=== PATIENT | female | born 1960 | race Caucasian/White ===

== ENCOUNTER → 2017-03-28 | Outpatient (CLI) | payer BC, MEDICARE ==
[~2017-03-28] MED LIST: AMLO10TA2 PO; AMLO10TA4 PO; BENAZEPRIL/HCTZ; BNZ10T GT; BNZ20T PO; CEPH250T PO; CHOL20002 PO; CLIN300C11 PO; DIPH25CA79 PO; FURO20TA4 PO; HYDR-690 PO; LEVO500T69 PO; OMEP40CA36 PO; ONDA8TAB6 PO; OXYC10TA8 PO; OXYC30TA76 PO; OXYC40TA57 PO; POLY17PO6 PO; RT-ALBUINH INH; SCR1T1 PO; SPIR100T PO; SPIR100T2 PO; SPIR100T28 PO; SUCR1TAB23 PO; ZLP5T PO; [UNRECOGNIZED DRUG - CODE] PO; [UNRECOGNIZED DRUG - OTHER] PO
--- NOTE | 2017-03-28 17:17 | Diagnostic Imaging Report ---
INDICATION: Fall. AP and lateral views of the sacrum and coccyx are obtained. FINDINGS: No overt fracture or acute bony abnormality is seen. There are degenerative changes of the SI joints. IMPRESSION: No overt fracture or acute bony abnormality. Sacrococcygeal pain. Dictated by: Dictated on workstation # [id number]
== END ==
LOC: RAD 15:55
PROVIDERS: ATTEND Family Medicine
DX: M53.3 Sacrococcygeal disorders, not elsewhere classified (principal); W19.XXXA Unspecified fall, initial encounter
CPT/HCPCS: 72220

== ENCOUNTER → 2017-06-13 | Outpatient (CLI) | payer BC, MEDICARE ==
[~2017-06-13] MED LIST changes: -SPIR100T2 PO; +SPIR100T4 PO
--- NOTE | 2017-06-13 18:23 | Diagnostic Imaging Report ---
PROCEDURE: US abdomen complete. TECHNIQUE: Multiple real-time grayscale images were obtained over the abdomen in various projections. INDICATION: Alcoholic cirrhosis. FINDINGS: Liver echotexture is somewhat heterogeneous, but no discrete liver mass is found. Periumbilical recanalized vein is present. The portal vein does show hepatopetal directional flow with diminished pulsatility. No perihepatic ascites or fluid collection. Spleen measures 16.2 cm. Splenic vein is patent and shows normal directional flow. The right kidney is normal in size however echogenic consistent with chronic medical renal disease. The left kidney could not be identified. There is no ascites. IMPRESSION: Heterogeneous liver without discrete mass. Normal gallbladder with no ascites or fluid collection. Splenomegaly is present. Echodense unobstructed right kidney on a chronic basis. Normal directional portal venous flow with diminished pulsatility. Dictated by: Dictated on workstation # [id number]
== END ==
LOC: RAD 15:32
PROVIDERS: ATTEND Family Medicine
DX: K70.31 Alcoholic cirrhosis of liver with ascites (principal); R16.1 Splenomegaly, not elsewhere classified
CPT/HCPCS: 76700

== ENCOUNTER → 2017-12-10 | Outpatient (CLI) | payer BC, MEDICARE ==
[~2017-12-10] MED LIST changes: -AMLO10TA2 PO; +AMLO10TA6 PO; +FURO40TA4 PO; +METO2.5T PO; +OXYC10TA7 PO; +ZOLP5TAB7 PO
--- NOTE | 2017-12-10 10:01 | Diagnostic Imaging Report ---
INDICATION: Routine screening. COMPARISON: 10/06/2015 and 12/18/2014. TECHNIQUE: 2D and 3D bilateral screening mammography was performed with CAD. FINDINGS: Both breasts are heterogeneously dense, limiting the sensitivity of mammography. There are innumerable microcalcifications throughout both breasts. Multiple clusters are present but these all appear to be fairly stable. No discrete mass is identified. A biopsy clip in the left breast is noted. The axillae are unremarkable. IMPRESSION: No mammographic features suspicious for malignancy are identified. ACR BI-RADS Category 2: Benign findings. Result letter will be mailed to the patient. Note: At least 10% of breast cancer is not imaged by mammography. Dictated by: Dictated on workstation # [id number]
== END ==
LOC: RAD 07:46
PROVIDERS: ATTEND Family Medicine
DX: Z12.31 Encounter for screening mammogram for malignant neoplasm of breast (principal)
CPT/HCPCS: 77067

== ENCOUNTER 2017-12-19 15:40 | Outpatient (CLI) | payer BC, MEDICARE ==
[~2017-12-19] VITALS: Ht 152.4 cm; Wt 86.2 kg
[~2017-12-19 15:40] MED LIST changes: -FURO40TA4 PO; -METO2.5T PO; -OXYC10TA7 PO; -ZOLP5TAB7 PO
[2017-12-19] MEDS ORDERED: FURO40TA4 PO (15:43)
[2017-12-19] MEDS ORDERED: OXYC10TA7 PO (15:43)
[2017-12-19] MEDS ORDERED: ZOLP5TAB7 PO (15:43)
[2017-12-19] MEDS ORDERED: METO2.5T PO (15:44)
== END 2017-12-19 15:58 | disposition home or self-care (01) ==
LOC: PREOP 15:40
PROVIDERS: ATTEND Surgery
DX: Z01.818 Encounter for other preprocedural examination (principal)

== ENCOUNTER 2017-12-24 07:34 | Day surgery (SDC) | payer BC, MEDICARE ==
[~2017-12-24] VITALS: Ht 152.4 cm; Wt 86.2 kg
[~2017-12-24 07:34] MED LIST changes: +FURO40TA4 PO; +METO2.5T PO; +OXYC10TA7 PO; +ZOLP5TAB7 PO
[2017-12-24] MEDS ORDERED: NS IV 500 ML 500 ML ONE (07:49)
[2017-12-24] MEDS ORDERED: NS IV 500 ML 500 ML IV PRN (07:52)
[2017-12-24] MEDS ORDERED: MIDAZOLAM 2 MG/2 ML (VERSED) VIAL IVP ONE (08:00)
[2017-12-24] MEDS ORDERED: fentaNYL INJECTION 100 MCG/2 ML AMP IVP ONE (08:00)
--- NOTE | 2017-12-24 08:49 | History & Physicial ---
History of Present Illness History of Present Illness Reason for visit/HPI to undergo colonoscopy to investigate rectal bleeding. No family history of colon cancer. Date of Admission 12/24/17 Date Seen by a Provider: Dec 24, 2017 Time Seen by a Provider: 08:43 I consulted on this patient on 12/24/17 08:43 Attending Physician Lucila Dominguez MD Admitting Physician Edy Bergman MD Consult Allergies and Home Medications Allergies Coded Allergies: Penicillins (Verified Allergy, Unknown, 08/27/08) Sulfa (Sulfonamide Antibiotics) (Verified Allergy, Unknown, 08/27/08) Home Medications Albuterol Sulfate 18 Gm Hfa.aer.ad, 2 PUFF INH Q4H PRN for SHORTNESS OF BREATH, (Reported) Amlodipine Besylate 10 Mg Tablet, 10 MG PO DAILY, (Reported) Cholecalciferol (Vitamin D3) 2,000 Unit Capsule, 2,000 UNIT PO DAILY, (Reported) Diphenhydramine HCl 25 Mg Capsule, 50 MG PO DAILY PRN for ITCHING, (Reported) TAKES 2 (25MG) CAPSULES Furosemide 40 Mg Tablet, 40 MG PO DAILY, (Reported) Metolazone 2.5 Mg Tablet, 2.5 MG PO Q48H, (Reported) Oxycodone HCl 10 Mg Tablet, 10 MG PO TID, (Reported) Polyethylene Glycol 3350 17 Gm Powd.pack, 17 GM PO DAILY PRN for CONSTIPATION, ( Reported) Spironolactone 100 Mg Tablet, 150 MG PO DAILY, (Reported) TAKES 1 1/2 (100MG) TABLETS Zolpidem Tartrate 5 Mg Tablet, 5 MG PO HS PRN for SLEEP, (Reported) Patient Home Medication List Home Medication List Reviewed: Yes Past Hjfbyxy-Ovvxmu-Nalete Hx Patient Social History Marrital Status: Employed/Student: employed Alcohol Use: Denies Use Recreational Drug Use: Yes (RECOVERING DRUG ABUSER) Smoking Status: Former Smoker Former Smoker, Quit: Dec 19, 2005 Recent Foreign Travel: No Contact w/other who traveled: Yes Recent Hopitalizations: No Recent Infectious Disease Expo: No Immunizations Up To Date Tetanus Booster (TDap): Less than 5yrs Date of Pneumonia Vaccine: June 27, 2011 Date of Influenza Vaccine: Dec 21, 2017 Seasonal Allergies Seasonal Allergies: Yes Surgeries Yes Hysterectomy, Tubal Ligation Cardiovascular Yes Heart Murmur, Hypertension Reproductive System : Yes Hx Reproductive Disorders: No MOLDER History: Hysterectomy Genitourinary Yes Kidney Stones, Renal Failure Gastrointestinal Yes Gastroesophageal Reflux, Ulcer Endocrine History of Endocrine Disorders: No Cancer Yes Cervical Type of Treatment: Surgical Intervention Blood Transfusions Adverse Reaction to a Blood Tr: No Family Medical History Family Hx: Patient reports no known family medical history. Review of Systems Constitutional: no symptoms reported EENTM: no symptoms reported Respiratory: no symptoms reported Cardiovascular: no symptoms reported Gastrointestinal: see HPI Genitourinary: no symptoms reported Skin: no symptoms reported Psychiatric/Neurological: No Symptoms Reported Physical Exam Vital Signs Capillary Refill : Height, Weight, BMI Height: 5'0.00" Weight: 190lbs. 0.0oz. [id number]; 37.1 BMI Method:Stated General Appearance: No Apparent Distress Neck: Normal Inspection Respiratory: Lungs Clear Gastrointestinal: Non Tender, Soft Rectal: Deferred Extremity: Normal Inspection Neurologic/Psychiatric: Alert, Oriented x3 Skin: Warm/Dry Assessment/Plan Assessment and Plan lady with intermittent rectal bleeding.. For colonoscopy. Admission Diagnosis Admission Status: Other (Outpt Proc) LUCILA DOMINGUEZ MD Dec 24, 2017 08:49
--- NOTE | 2017-12-24 08:51 | Conscious Sedation/ASA ---
Conscious Sedation Pre-Proced Time 08:51 ASA Score 2 For ASA 3 and 4: Consider anesthesia and medical clearance. Also, for patients with a history of failed moderate sedation consider anesthesia. Airway Lungs Heart ASA score ASA 1: a normal healthy patient ASA 2: a patient with a mild systemic disease (mid diabetes, controlled hypertension, obesity ASA 3: a patient with a severe systemic disease that limits activity (angina , COPD, prior Myocardial infarction) ASA 4: a patient with an incapacitating disease that is a constant threat to life (CHF, renal failure) ASA 5: a moribund patient not expected to survive 24 hrs. (ruptured aneurysm) ASA 6: a declared brain patient whose organs are being harvested. For emergent operations, add the letter E after the classification Mallampati Classification Grade 1 Sedation Plan Discussed options with patient/fam The patient is an appropriate candidate to undergo the planned procedure, sedation, and anesthesia. The patient immediately re-assessed prior to indication. LUCILA DOMINGUEZ MD Dec 24, 2017 08:51
[2017-12-24] MEDS ORDERED: MIDAZOLAM 2 MG/2 ML (VERSED) VIAL ONE ×3 (09:01)
[2017-12-24] MEDS ORDERED: fentaNYL INJECTION 100 MCG/2 ML AMP ONE ×2 (09:01)
[2017-12-24] MEDS ORDERED: proPOfol 200 MG/20 ML (DIPRIVAN) VIAL IV ONE ×2 (09:13→09:24)
--- NOTE | 2017-12-24 09:29 | Endo Procedure Record ---
Endo Procedure Report Date of Procedure Last Colonoscopy: Yes Dec 24, 2017 Surgeon (s) LUCILA DOMINGUEZ MD Post Procedure/Op Diagnosis very few sigmoid diverticula Procedure Performed colonoscopy to cecum Description of Procedure Anesthesia Type: Conscious Sedation Specimen(s) collected/removed none Description of the Procedure Indication for the procedure: This lady came in for screening colonoscopy. Informed consent was obtained after reviewing the procedure in detail. Description of procedure: She was placed in left lateral decubitus position and her vital signs were monitored. Conscious sedation was achieved initially using Versed and fentanyl. Subsequently, our STITCH BURNISHER administered propofol, to achieve adequate sedation. Digital rectal examination was unremarkable. The colonoscope was then introduced into the rectum and advanced all the way up to cecum. The quality of bowel preparation was excellent. The scope was then withdrawn slowly and the mucosa examined in a systematic fashion. Findings: Very few sigmoid no polyps were found. She tolerated she will and is taken back to the nursing area in a stable condition. Impression: Screening colonoscopy. No polyps. No family is. Recommend repeating 10 years. Copy Copies To 1: MIKE MEDINA MD, XAVIER M MD Dec 24, 2017 09:29
--- NOTE | 2017-12-24 09:30 | Discharge Inst-Simple/Standard ---
Discharge Inst-Standard Discharge Medications New, Converted or Re-Newed RX: Other Patient Instructions/Follow Up Plan of Care/Instructions/FU: repeat colonoscopy in 10 years Activity as Tolerated: Yes Discharge Diet: No Restrictions LUCILA DOMINGUEZ MD Dec 24, 2017 09:30
--- NOTE | 2017-12-24 09:34 | Anesthesia-Procedure Note ---
Procedures/Interventions Procedure Start/Stop/Diagnosis Date of Procedure: Dec 24, 2017 Start Time: 09:13 Referring Physician: Jeet Preprocedural Diagnosis: screening colonoscopy Brief History Unable to sedate patient for procedure. wound specialist had administered Versed 6mg IV, and Fentanyl 100mcq. Called to assist. Propofol titrated to effect, total of 150mg IV given. Pt tolerated well. VSS. See nurses notes for details. Stop Time: 09:25 CHRISTIANO MURILLO CRNA Dec 24, 2017 09:34
[2017-12-24 09:55] VITALS: BP 165/58
[2017-12-24 10:25] VITALS: BP 164/75
[2017-12-24 10:40] VITALS: BP 164/75
== END 2017-12-24 10:40 | disposition home or self-care (01) ==
LOC: ENDO 07:34
PROVIDERS: ATTEND Surgery
DX: Z12.11 Encounter for screening for malignant neoplasm of colon (principal); K57.30 Diverticulosis of large intestine without perforation or abscess without bleeding; Z87.891 Personal history of nicotine dependence; Z79.899 Other long term (current) drug therapy; I10 Essential (primary) hypertension; N19 Unspecified kidney failure; K21.9 Gastro-esophageal reflux disease without esophagitis; Z85.41 Personal history of malignant neoplasm of cervix uteri

== ENCOUNTER → 2018-02-01 | Outpatient (CLI) | payer BC, MEDICARE ==
--- NOTE | 2018-02-01 09:41 | Diagnostic Imaging Report ---
PROCEDURE: CT abdomen and pelvis without contrast. TECHNIQUE: Multiple contiguous axial images were obtained through the abdomen and pelvis without the use of intravenous contrast. INDICATION: End-stage renal disease. Study is performed to evaluate aorta and iliac vessels prior to renal transplant. COMPARISON: Correlation is made with prior CT from 01/23/2011. FINDINGS: The lung bases are clear. Liver has a nodular contour suggestive of cirrhosis. There is a small low-density in the left lobe of the liver measuring 9 mm. This is too small to characterize and may represent a small cyst. Gallbladder is mildly distended. There is recanalization of the umbilical vein. Numerous abdominal wall varices are present. Pancreas is unremarkable. The spleen is enlarged measuring 15.4 cm cephalocaudal. There is no ascites. No adrenal mass is seen. Left kidney is markedly atrophic. The right kidney is unremarkable. Aorta does show some mild calcified plaque in the distal aspect. There is also some plaquing in the proximal common iliac arteries bilaterally. Aorta and iliacs appear to be nonaneurysmal. Small and large bowel loops are normal in caliber. The bladder is unremarkable. IMPRESSION: 1. Findings suggestive of cirrhosis and portal hypertension. There is recanalization of the umbilical vein with numerous abdominal wall varices as well as splenomegaly. No ascites is seen. There is a subcentimeter low-density in the left lobe of the liver, too small to characterize but continued followup is recommended. 2. Left renal atrophy. 3. No other significant abnormality is detected. Dictated by: Dictated on workstation # [id number]
== END ==
LOC: RAD 09:05
PROVIDERS: ATTEND Specialist
DX: I86.4 Gastric varices (principal); R16.1 Splenomegaly, not elsewhere classified; N26.1 Atrophy of kidney (terminal); K76.9 Liver disease, unspecified; N18.6 End stage renal disease; Z01.818 Encounter for other preprocedural examination
CPT/HCPCS: 74176

== ENCOUNTER → 2018-03-21 | Outpatient (CLI) | payer BC, MEDICARE ==
[~2018-03-21] MED LIST changes: -AMLO10TA6 PO; +AMLO10TA7 PO
--- NOTE | 2018-03-21 16:29 | Diagnostic Imaging Report ---
INDICATION: Postmenopausal female. COMPARISON: 08/19/2015. FINDINGS: AP Spine L2-L4: [BMD (g/cm2): 1.337] [T-Score: 1.1] [Z-Score: 1.2] [BMD Previous: 1.328] [BMD % Change: 0.7] LT Hip Neck: [BMD (g/cm2): 0.947] [T-Score: -0.7] [Z-Score: -0.1] LT Hip Total: [BMD (g/cm2):1.042] [T-Score:0.3] [Z-Score: 0.4] [BMD Previous: 1.143] [BMD % Change: N/A] RT Hip Neck: [BMD (g/cm2):0.880] [T-Score:-1.1] [Z-Score:-0.6] RT Hip Total: [BMD (g/cm2):0.935] [T-score:-0.6] [Z-Score:-0.4] [BMD Previous:1.030] [BMD % Change:N/A] *Indicates significant change from prior examination based on 95% confidence level. World Health Organization criteria for BMD interpretation classify patients as Normal (T-score at or above -1.0), Osteopenic (T-score between -1.0 and -2.5) or Osteoporotic (T-score at or below -2.5). LIMITATIONS AND MODIFICATION: Degenerative changes in the lumbar spine may falsely elevate bone density. The mean bone mineral density of the bilateral hips measures 0.989 g per square centimeter, with a T score of -0.2 and Z score of 0.0. This represents a 9.0% decrease in bone mineral density since 2016. FRACTURE RISK (FRAX SCORE): The ten year probability of (%): Major Osteoporotic Fracture: [5.5%] Hip Fracture: [0.3%] IMPRESSION: 1. Osteopenia (Low bone mass). 2. Bone mineral density has decreased by a statistically significant amount, as detailed above. 3. See below National Osteoporosis Foundation guidelines on when to potentially initiate pharmacologic therapy. Based on the National Osteoporosis Foundation Guidelines, pharmacologic treatment should be initiated in any of the following, unless clinical conditions suggest otherwise: * Any patient with prior fragility fracture of the hip or vertebrae. A spine fracture indicates 5X risk for subsequent spine fracture and 2X risk for subsequent hip fracture. * Osteoporosis (T-score <-2.5). * Postmenopausal women and men age 50 and older with low bone mass/osteopenia (T-score between -1.0 and -2.5) by DXA and 10-year major osteoporotic fracture greater than 20% or a 10-year probability of hip fracture greater than 3%. These fracture risks are supplied above in the FRAX score, if applicable. * Clinician judgement and/or patient preferences may indicate treatment for people with 10-year fracture probabilities above or below these levels. Dictated by: Dictated on workstation # [id number]
== END ==
LOC: RAD 11:34
PROVIDERS: ATTEND Nurse Practitioner Family
DX: M85.80 Other specified disorders of bone density and structure, unspecified site (principal); E55.9 Vitamin D deficiency, unspecified; Z78.0 Asymptomatic menopausal state
CPT/HCPCS: 77080

== ENCOUNTER → 2018-04-15 | Outpatient (CLI) | payer BC, MEDICARE ==
--- NOTE | 2018-04-15 18:03 | Diagnostic Imaging Report ---
INDICATION: Pain in the upper and outer aspect of the left breast. Patient reports a recent trauma to the left breast. COMPARISON: Correlation is made with prior mammograms from 12/10/2017 and 10/06/2015. TECHNIQUE: 2D and 3D bilateral screening mammography was performed with computer-aided detection (CAD) system. FINDINGS: Both breasts are heterogeneously dense, limiting the sensitivity of mammography. Multiple calcifications in both breasts appears stable. Biopsy clip in the left breast is again seen. No underlying abnormality is seen at the area of pain in the upper-outer left breast. No mass is seen. Axillae are unremarkable. There does appear to be some skin thickening in the periareolar region. IMPRESSION: No mammographic abnormality at the area of pain in the upper-outer right breast is seen. There is some mild skin thickening in the periareolar region, perhaps owing to recent trauma. Sonographic interrogation is recommended for further evaluation and will be performed today. ACR BI-RADS Category 0: Incomplete. (Needs additional imaging evaluation). Result letter will be mailed to the patient. Note: At least 10% of breast cancer is not imaged by mammography. Dictated by: Dictated on workstation # [id number]
--- NOTE | 2018-04-15 18:08 | Diagnostic Imaging Report ---
INDICATION: Pain in the upper-outer left breast as well as some edema in the periareolar left breast. COMPARISON: Correlation is made with diagnostic mammogram earlier the same day. FINDINGS: Sonographic interrogation of the area of pain in the outer left breast as well as the periareolar region was performed. There is some edema in the subcutaneous tissues periareolar location corresponding to the skin thickening noted mammographically. No fluid collection or mass is seen. At the area of pain in the outer left breast, no abnormality is detected. No solid or cystic mass is detected. IMPRESSION: There is some subcutaneous edema in the periareolar left breast without evidence of mass or fluid collection. Patient does report having a recent fall with left breast injury. This may be secondary to recent trauma. The study is otherwise unremarkable. ACR BI-RADS Category 2: Benign findings. Dictated by: Dictated on workstation # [id number]
== END ==
LOC: RAD 12:55
DX: N64.4 Mastodynia (principal); R60.9 Edema, unspecified
CPT/HCPCS: 76642; 77066

== ENCOUNTER 2018-09-17 15:19 | Emergency (ER) | payer BC, MEDICARE ==
[~2018-09-17] VITALS: Ht 152.4 cm; Wt 86.2 kg
--- NOTE | 2018-09-17 15:32 | ED General ---
General Chief Complaint: General Problems/Pain Stated Complaint: PLATELET COUNT LOW,SENT FROM Nursing Triage Note: PT STATES SHE IS ON THE TRANSPLANT LIST FOR LIVER AND KIDNEY. PT WAS SEEN TODAY AND HAD A PLATELET COUNT OF 4,000. PT STATES SHE NORMALLY RUNS 24,000 FOR PLATELETS. PT DENIES OUTWARD BLEEDING. PT STATES FEELING MORE WEEK AND TIRED. PT STATES SHE TAKES DAILY DIALYSIS. Nursing Sepsis Screen: No Definite Risk Source of Information: Patient Exam Limitations: No Limitations History of Present Illness Date Seen by Provider: Sep 17, 2018 Time Seen by Provider: 15:30 Initial Comments To ER per private vehicle with reports of low platelet count. 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 She also has renal failure on hemodialysis 4 days a week. Typical platelet count is in the 25-30,000 range. This morning this was measured at 4000. She does not have any bleeding. History of hepatitis C with history of treatment and no current detectable viral load. She is on the liver transplant waiting list at the [facility]. Timing/Duration: 1-2 Days Severity: Moderate Allergies and Home Medications Allergies Coded Allergies: Penicillins (Verified Allergy, Unknown, 08/27/08) Sulfa (Sulfonamide Antibiotics) (Verified Allergy, Unknown, 08/27/08) Home Medications Albuterol Sulfate 18 Gm Hfa.aer.ad, 2 PUFF INH Q4H PRN for SHORTNESS OF BREATH, (Reported) Amlodipine Besylate 10 Mg Tablet, 10 MG PO DAILY, (Reported) Cholecalciferol (Vitamin D3) 2,000 Unit Capsule, 2,000 UNIT PO DAILY, (Reported) Diphenhydramine HCl 25 Mg Capsule, 50 MG PO DAILY PRN for ITCHING, (Reported) TAKES 2 (25MG) CAPSULES Furosemide 40 Mg Tablet, 40 MG PO DAILY, (Reported) Metolazone 2.5 Mg Tablet, 2.5 MG PO Q48H, (Reported) Oxycodone HCl 10 Mg Tablet, 10 MG PO TID, (Reported) Polyethylene Glycol 3350 17 Gm Powd.pack, 17 GM PO DAILY PRN for CONSTIPATION, (Reported) Spironolactone 100 Mg Tablet, 150 MG PO DAILY, (Reported) TAKES 1 1/2 (100MG) TABLETS Zolpidem Tartrate 5 Mg Tablet, 5 MG PO HS PRN for SLEEP, (Reported) Patient Home Medication List Home Medication List Reviewed: Yes Review of Systems Review of Systems Constitutional: see HPI EENTM: see HPI Respiratory: no symptoms reported Cardiovascular: no symptoms reported Genitourinary: no symptoms reported Musculoskeletal: no symptoms reported Skin: no symptoms reported Psychiatric/Neurological: No Symptoms Reported Hematologic/Lymphatic: No Symptoms Reported Past Aerlrdn-Xwiiss-Zjbmcq Hx Patient Social History Former Smoker, Quit: Dec 19, 2005 Recent Foreign Travel: No Contact w/Someone Who Travel: No Recent Infectious Disease Expo: No Recent Hopitalizations: No Immunizations Up To Date Tetanus Booster (TDap): Less than 5yrs Date of Pneumonia Vaccine: June 27, 2011 Date of Influenza Vaccine: Dec 21, 2017 Seasonal Allergies Seasonal Allergies: Yes Past Medical History Surgeries: Yes Hysterectomy, Tubal Ligation Asthma Cardiac: Yes Heart Murmur, Hypertension Reproductive Disorders: 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 Physical Exam Vital Signs Vital Signs - First Documented 09/17/18 15:24 Temp 98.4 Pulse 67 Resp 18 B/P (MAP) 148/93 (111) Pulse Ox 99 O2 Delivery Room Air Capillary Refill : Less Than 3 Seconds Height, Weight, BMI Height: 5'0.00" Weight: 190lbs. 0.0oz. [id number]; 37.1 BMI Method:Stated General Appearance: No Apparent Distress, WD/WN Eyes: Bilateral Eye Normal Inspection, Bilateral Eye PERRL, Bilateral Eye EOMI HEENT: PERRL/EOMI, TMs Normal Neck: Full Range of Motion, Normal Inspection Respiratory: No Accessory Muscle Use, No Respiratory Distress Extremity: Normal Capillary Refill, Normal Inspection Neurologic/Psychiatric: Alert, Oriented x3 Skin: Other (hyperpigmented skin) Progress/Results/Core Measures Suspected Sepsis Recent Fever Within 48 Hours: No Infection Criteria Present: None New/Unexplained Altered Menta: No Sepsis Screen: No Definite Risk SIRS Temperature:98.4 Pulse: 67 Respiratory Rate: 18 Laboratory Tests 09/17/18 15:35: White Blood Count 1.7L Blood Pressure 148 /93 Mean: 111 Laboratory Tests 09/17/18 15:35: Creatinine 2.88H, INR Comment 1.2, Platelet Count 10*L, Total Bilirubin 1.2H Results/Orders Lab Results Laboratory Tests Test 09/17/18 15:35 Range/Units White Blood Count 1.7 L 4.3-11.0 10^3/uL Red Blood Count 2.81 L 4.35-5.85 10^6/uL Hemoglobin 8.9 L 11.5-16.0 G/DL Hematocrit 26 L 35-52 % Mean Corpuscular Volume 94 80-99 FL Mean Corpuscular Hemoglobin 32 25-34 PG Mean Corpuscular Hemoglobin Concent 34 32-36 G/DL Red Cell Distribution Width 14.3 10.0-14.5 % Platelet Count 10 *L 130-400 10^3/uL Mean Platelet Volume 7.4-10.4 FL Neutrophils (%) (Auto) 68 42-75 % Lymphocytes (%) (Auto) 16 12-44 % Monocytes (%) (Auto) 14 H 0-12 % Eosinophils (%) (Auto) 3 0-10 % Basophils (%) (Auto) 0 0-10 % Neutrophils # (Auto) 1.2 L 1.8-7.8 X 10^3 Lymphocytes # (Auto) 0.3 L 1.0-4.0 X 10^3 Monocytes # (Auto) 0.2 0.0-1.0 X 10^3 Eosinophils # (Auto) 0.1 0.0-0.3 10^3/uL Basophils # (Auto) 0.0 0.0-0.1 10^3/uL Prothrombin Time 16.1 H 12.2-14.7 SEC INR Comment 1.2 0.8-1.4 Sodium Level 134 L 135-145 MMOL/L Potassium Level 2.8 L 3.6-5.0 MMOL/L Chloride Level 98 98-107 MMOL/L Carbon Dioxide Level 27 21-32 MMOL/L Anion Gap 9 5-14 MMOL/L Blood Urea Nitrogen 23 H 7-18 MG/DL Creatinine 2.88 H 0.60-1.30 MG/DL Estimat Glomerular Filtration Rate 17 BUN/Creatinine Ratio 8 Glucose Level 91 70-105 MG/DL Calcium Level 8.8 8.5-10.1 MG/DL Corrected Calcium 9.4 8.5-10.1 MG/DL Total Bilirubin 1.2 H 0.1-1.0 MG/DL Aspartate Amino Transf (AST/SGOT) 29 5-34 U/L Alanine Aminotransferase (ALT/SGPT) 25 0-55 U/L Alkaline Phosphatase 133 40-136 U/L Total Protein 6.0 L 6.4-8.2 GM/DL Albumin 3.3 3.2-4.5 GM/DL My Orders Orders - SUSI PEREZ APRN Cbc With Automated Diff (09/17/18 15:26) Comprehensive Metabolic Panel (09/17/18 15:26) Protime With Inr (09/17/18 15:26) Red Cells Leukocytes Reduced (09/17/18 15:26) Ed Iv/Invasive Line Start (09/17/18 15:26) Type And Screen (09/17/18 15:26) Platelet Pheresis Lr (09/17/18 16:11) Potassium Chloride (Tablet) (K Dur Table (09/17/18 16:30) Ns (Ivpb) (Sodium Chloride 0.9%) (09/17/18 17:00) Medications Given in ED Current Medications Medications Dose Ordered Sig/Arabella Route Start Time Stop Time Status Last Admin Dose Admin Potassium Chloride 40 meq ONCE ONCE PO 09/17/18 16:30 09/17/18 16:31 DC 09/17/18 16:58 40 MEQ Sodium Chloride 250 ml @ 30 mls/hr Q8H20M ONCE IV 09/17/18 17:00 09/18/18 01:19 09/17/18 16:58 30 MLS/HR Vital Signs/I&O 09/17/18 09/17/18 09/17/18 15:24 17:05 17:20 Temp 98.4 98.1 Pulse 67 71 68 Resp 18 18 18 B/P (MAP) 148/93 (111) 142/47 152/68 Pulse Ox 99 98 100 O2 Delivery Room Air Room Air Capillary Refill : Less Than 3 Seconds Blood Pressure Mean: 111 Departure Communication (Admissions) I spoke with Dr. Orozco, she agrees with platelet transfusion here in the ER then discharged home. I'll also speak with the patient's transplant physician Dr. Epperson at the [facility]. 1705-spoke with Dr. Castro from the transplant center at [facility]. She is fine with a platelet transfusion here, she was concerned by the drop in the platelets from approximately 25,000 down to 10,000. She is concerned this may represent an ITP and the need for a bone marrow biopsy. I did then speak with Dr. Orozco once again to relay this concern. She'll follow up with the patient in clinic. Impression Primary Impression: Thrombocytopenia Additional Impressions: End stage renal disease on dialysis End stage liver disease Disposition: HOME, SELF-CARE Condition: Stable Departure-Patient Inst. Decision time for Depature: 16:53 Referrals: MIKE MEDINA MD (PCP) Primary Care Physician Patient Instructions: NO INSTRUCTIONS GIVEN Add. Discharge Instructions: 1. Call your [facility] doctor tomorrow. Plan is for repeat labs this Sunday. 2. Return here for any concerns. Call Dr. Orozco tomorrow for an appointment to be seen to address this acute drop in your platelet count. All discharge instructions reviewed with patient and/or family. Voiced understanding. Copy Copies To 1: MIKE MEDINA MD; KEVIN OROZCO MD, PETER J APRN Sep 17, 2018 15:32
[2018-09-17 15:54] LABS: BASOPHILS % (AUTO) 0 % (0-10); EOSINOPHILS # (AUTO) 0.1 10^3/uL (0.0-0.3); EOSINOPHILS % (AUTO) 3 % (0-10); HEMATOCRIT 26 % (35-52); HEMOGLOBIN 8.9 G/DL (11.5-16.0); LYMPHOCYTES # (AUTO) 0.3 X 10^3 (1.0-4.0); LYMPHOCYTES % (AUTO) 16 % (12-44); MEAN CORPUSCULAR HEMOGLOBIN 32 PG (25-34); MEAN CORPUSCULAR HGB CONC 34 G/DL (32-36); MEAN CORPUSCULAR VOLUME 94 FL (80-99); MONOCYTES # (AUTO) 0.2 X 10^3 (0.0-1.0); MONOCYTES % (AUTO) 14 % (0-12); NEUTROPHILS # (AUTO) 1.2 X 10^3 (1.8-7.8); NEUTROPHILS % (AUTO) 68 % (42-75); RED CELL DISTRIBUTION WIDTH 14.3 % (10.0-14.5); WHITE BLOOD COUNT 1.7 10^3/uL (4.3-11.0)
[2018-09-17 15:56] LABS: PLATELET COUNT 10 10^3/uL (130-400)
[2018-09-17 16:10] LABS: INR 1.2 (0.8-1.4); PROTHROMBIN TIME PATIENT 16.1 SEC (12.2-14.7)
[2018-09-17 16:14] LABS: ALBUMIN 3.3 GM/DL (3.2-4.5); BILIRUBIN,TOTAL 1.2 MG/DL (0.1-1.0); CALCIUM 8.8 MG/DL (8.5-10.1); CREATININE SERUM 2.88 MG/DL (0.60-1.30); POTASSIUM 2.8 MMOL/L (3.6-5.0)
[2018-09-17] MEDS ORDERED: KCL 20 MEQ TAB (K-DUR) PO ONE (16:30)
[2018-09-17] MEDS ORDERED: NS (IVPB) 250 ML IV ONE (17:00)
[2018-09-17 17:05] VITALS: BP 142/47
[2018-09-17 17:20] VITALS: BP 152/68
--- NOTE | 2018-09-17 17:25 | NUR ---
PLATELETS TRANFUSIONING NO C/O
--- NOTE | 2018-09-17 17:40 | NUR ---
PLATELETS CON'T TO INFUSE NO C/O
[2018-09-17 18:08] VITALS: BP 146/67
[2018-09-17 18:16] VITALS: BP 146/67
== END 2018-09-17 18:15 | disposition home or self-care (01) ==
LOC: EDUNIT# 15:19 → ER 15:20
DX: I12.0 Hypertensive chronic kidney disease with stage 5 chronic kidney disease or end stage renal disease (principal); N18.6 End stage renal disease; K72.90 Hepatic failure, unspecified without coma; D69.6 Thrombocytopenia, unspecified; B19.20 Unspecified viral hepatitis C without hepatic coma; J45.909 Unspecified asthma, uncomplicated; K21.9 Gastro-esophageal reflux disease without esophagitis; Z99.2 Dependence on renal dialysis; Z94.2 Lung transplant status; Z88.0 Allergy status to penicillin; Z88.2 Allergy status to sulfonamides; Z90.710 Acquired absence of both cervix and uterus; Z98.51 Tubal ligation status; Z85.41 Personal history of malignant neoplasm of cervix uteri
CPT/HCPCS: 36415; 36430; 80053; 85025; 85610; 86850; 86900; 86901; 86920; 96360

== ENCOUNTER 2018-10-17 15:05 | Outpatient (RCR) | payer BC, MEDICARE ==
[2018-08-01 09:18] LABS: BASOPHILS % (AUTO) 0 % (0-10); EOSINOPHILS # (AUTO) 0.1 10^3/uL (0.0-0.3); EOSINOPHILS % (AUTO) 7 % (0-10); HEMATOCRIT 34 % (35-52); HEMOGLOBIN 11.3 G/DL (11.5-16.0); LYMPHOCYTES # (AUTO) 0.5 X 10^3 (1.0-4.0); LYMPHOCYTES % (AUTO) 31 % (12-44); MEAN CORPUSCULAR HEMOGLOBIN 31 PG (25-34); MEAN CORPUSCULAR HGB CONC 33 G/DL (32-36); MEAN CORPUSCULAR VOLUME 93 FL (80-99); MEAN PLATELET VOLUME 12.6 FL (7.4-10.4); MONOCYTES # (AUTO) 0.2 X 10^3 (0.0-1.0); MONOCYTES % (AUTO) 10 % (0-12); NEUTROPHILS # (AUTO) 0.8 X 10^3 (1.8-7.8); NEUTROPHILS % (AUTO) 53 % (42-75); RED CELL DISTRIBUTION WIDTH 15.4 % (10.0-14.5); WHITE BLOOD COUNT 1.6 10^3/uL (4.3-11.0)
[2018-08-01 09:22] LABS: PLATELET COUNT 29 10^3/uL (130-400)
[2018-08-01 09:35] LABS: ALBUMIN 3.3 GM/DL (3.2-4.5); BILIRUBIN,TOTAL 1.2 MG/DL (0.1-1.0); CALCIUM 8.7 MG/DL (8.5-10.1); CREATININE SERUM 2.56 MG/DL (0.60-1.30); TOTAL PROTEIN 6.6 GM/DL (6.4-8.2)
[2018-10-17 15:28] LABS: BASOPHILS % (AUTO) 0 % (0-10); EOSINOPHILS % (AUTO) 4 % (0-10); HEMATOCRIT 34 % (35-52); HEMOGLOBIN 10.6 G/DL (11.5-16.0); LYMPHOCYTES # (AUTO) 0.3 X 10^3 (1.0-4.0); LYMPHOCYTES % (AUTO) 33 % (12-44); MEAN CORPUSCULAR HEMOGLOBIN 31 PG (25-34); MEAN CORPUSCULAR HGB CONC 32 G/DL (32-36); MEAN CORPUSCULAR VOLUME 97 FL (80-99); MEAN PLATELET VOLUME 13.1 FL (7.4-10.4); MONOCYTES # (AUTO) 0.2 X 10^3 (0.0-1.0); MONOCYTES % (AUTO) 23 % (0-12); NEUTROPHILS # (AUTO) 0.4 X 10^3 (1.8-7.8); NEUTROPHILS % (AUTO) 40 % (42-75); RED CELL DISTRIBUTION WIDTH 14.3 % (10.0-14.5)
[2018-10-17 15:31] LABS: PLATELET COUNT 36 10^3/uL (130-400)
[2018-10-17 15:41] LABS: ALBUMIN 3.3 GM/DL (3.2-4.5); BILIRUBIN,TOTAL 1.1 MG/DL (0.1-1.0); CALCIUM 8.4 MG/DL (8.5-10.1); CREATININE SERUM 2.92 MG/DL (0.60-1.30); POTASSIUM 3.7 MMOL/L (3.6-5.0); TOTAL PROTEIN 6.6 GM/DL (6.4-8.2)
== END 2018-10-30 | disposition home or self-care (01) ==
LOC: ONC 15:05
PROVIDERS: ATTEND Internal Medicine Hematology & Oncology
DX: D61.818 Other pancytopenia (principal); K76.89 Other specified diseases of liver; B18.2 Chronic viral hepatitis C; I13.2 Hypertensive heart and chronic kidney disease with heart failure and with stage 5 chronic kidney disease, or end stage renal disease; N18.5 Chronic kidney disease, stage 5; I50.9 Heart failure, unspecified; E66.01 Morbid (severe) obesity due to excess calories; Z68.35 Body mass index [BMI] 35.0-35.9, adult; Z79.891 Long term (current) use of opiate analgesic; Z99.2 Dependence on renal dialysis; Z76.82 Awaiting organ transplant status
CPT/HCPCS: 36415; 80053; 85025; 99213; 99214

== ENCOUNTER 2018-10-26 08:36 | Emergency (ER) | payer BC, MEDICARE ==
[~2018-10-26] VITALS: Ht 152.4 cm; Wt 81.6 kg
[2018-10-26] MEDS ORDERED: CEFEPIME INJECTION 1,000 MG in WATER (STERILE) FOR INJECTION 10 ML IV ONE (09:00)
[2018-10-26] MEDS ORDERED: ONDANSETRON 4 MG/2 ML (SDV) Z0FRAN IV PRN (09:00)
[2018-10-26] MEDS ORDERED: NS IV 1000 ML 1,750 ML IV ONE (09:00)
[2018-10-26] MEDS ORDERED: VANCOMYCIN INJECTION 1,000 MG in NS (IVPB) 250 ML IV ONE (09:00)
--- NOTE | 2018-10-26 09:07 | ED General ---
General Stated Complaint: FEVER Source of Information: Patient, Spouse Exam Limitations: No Limitations History of Present Illness Date Seen by Provider: Oct 26, 2018 Time Seen by Provider: 08:49 Initial Comments The patient presents to ER by private conveyance with chief complaint she's with a fever 103F. She took Tylenol thousand grams 6:00 this morning. She went to her dialysis appointment Sunday this morning and they would not be house because of fever and told her to come the ER. She's not having a cough shortness of breath but she does not have nausea and feels like she has a bladder infection. She started having diarrhea yesterday and this morning. Her first fever was Sunday, 3 days ago but it had spontaneously gone away. She still produces urine. She has a history of low white blood count and recently had a bone marrow biopsy by an oncologist at [facility]. She also had a blood culture of her DL DC because of some discharge around the port site and it showed some gram positive cocci. A week ago she had a infection of her port on the right so they took it out and put a double-lumen dialysis catheter in on the left. She says her white count usually runs 1-2000. His history of liver and renal failure secondary to hepatitis C status post treatment for hepatitis C. She is on the transplant list at . She would prefer to go to . She does see Dr. lópez, nephrology for her dialysis through [facility]. No diarrhea or constipation. She does not take ibuprofen because she feels it'll make her liver worse. Allergies and Home Medications Allergies Coded Allergies: Penicillins (Verified Allergy, Unknown, 08/27/08) Sulfa (Sulfonamide Antibiotics) (Verified Allergy, Unknown, 08/27/08) Home Medications Albuterol Sulfate 18 Gm Hfa.aer.ad, 2 PUFF INH Q4H PRN for SHORTNESS OF BREATH, (Reported) Amlodipine Besylate 10 Mg Tablet, 10 MG PO DAILY, (Reported) Cholecalciferol (Vitamin D3) 2,000 Unit Capsule, 2,000 UNIT PO DAILY, (Reported) Diphenhydramine HCl 25 Mg Capsule, 50 MG PO DAILY PRN for ITCHING, (Reported) TAKES 2 (25MG) CAPSULES Furosemide 40 Mg Tablet, 40 MG PO DAILY, (Reported) Metolazone 2.5 Mg Tablet, 2.5 MG PO Q48H, (Reported) Oxycodone HCl 10 Mg Tablet, 10 MG PO TID, (Reported) Polyethylene Glycol 3350 17 Gm Powd.pack, 17 GM PO DAILY PRN for CONSTIPATION, (Reported) Spironolactone 100 Mg Tablet, 150 MG PO DAILY, (Reported) TAKES 1 1/2 (100MG) TABLETS Zolpidem Tartrate 5 Mg Tablet, 5 MG PO HS PRN for SLEEP, (Reported) Patient Home Medication List Home Medication List Reviewed: Yes Review of Systems Review of Systems Constitutional: No chills, No diaphoresis EENTM: No ear discharge, No ear pain Respiratory: No cough, No short of breath Cardiovascular: No chest pain, No edema, No Hx of Intervention, No palpitations Gastrointestinal: No abdominal pain, No constipation; nausea; No vomiting Genitourinary: No discharge; dysuria Musculoskeletal: No back pain, No joint pain Skin: No pruritus, No rash Past Zasptmc-Opfhfm-Qpqmuz Hx Patient Social History Alcohol Use: Denies Use Recreational Drug Use: No Smoking Status: Former Smoker Former Smoker, Quit: Dec 19, 2005 Recent Foreign Travel: No Contact w/Someone Who Travel: No Recent Hopitalizations: No Immunizations Up To Date Tetanus Booster (TDap): Less than 5yrs Date of Pneumonia Vaccine: June 27, 2011 Date of Influenza Vaccine: Dec 21, 2017 Seasonal Allergies Seasonal Allergies: Yes Past Medical History Surgeries: Yes Hysterectomy, Tubal Ligation Respiratory: Yes Asthma Cardiac: Yes Heart Murmur, Hypertension Neurological: No Reproductive Disorders: No 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 Physical Exam-Suspected Sepsis Physical Exam Vital Signs Vital Signs - First Documented 10/26/18 08:40 Temp 100.3 Pulse 76 Resp 16 B/P (MAP) 141/69 (93) Pulse Ox 96 O2 Delivery Room Air Capillary Refill : Height, Weight, BMI Height: 5'0.00" Weight: 190lbs. 0.0oz. 86.187909ya; 37.1 BMI Method:Stated General Appearance: WD/WN, Mild Distress Eyes: Bilateral Eye Normal Inspection, Bilateral Eye PERRL, Bilateral Eye EOMI HEENT: PERRL/EOMI, TMs Normal, Normal ENT Inspection, Pharynx Normal; No Moist Mucous Membranes Neck: Full Range of Motion, Normal Inspection, Non Tender, Supple Respiratory: Chest Non Tender, Lungs Clear, Normal Breath Sounds, No Accessory Muscle Use, No Respiratory Distress Cardiovascular: Regular Rate, Rhythm, Normal Peripheral Pulses, Other Gastrointestinal: Normal Bowel Sounds (1+ pitting edema bilateral ankles), Soft, Guarding, Tenderness (right upper quadrant and left lower quadrant) Extremity: Normal Capillary Refill, Normal Inspection Neurologic/Psychiatric: Alert, Oriented x3, No Motor/Sensory Deficits, Normal Mood/Affect Skin: normal color, warm/dry Focused Exam Sepsis Stage: Sepsis Possible Source: Unknown Lactate Level 10/26/18 09:03: Lactic Acid Level 3.73*H Time of Focused Exam: 11:56 Respiratory: Lungs Clear, Normal Breath Sounds, No Accessory Muscle Use, No Respiratory Distress Cardiovascular: Regular Rate, Rhythm, Normal Peripheral Pulses Capillary Refill: Less Than 3 Seconds Peripheral Pulses: 2+ Dorsalis Pedis (R), 2+ Left Dors-Pedis (L), 2+ Radial Pulses (R), 2+ Radial Pulses (L) Skin: normal color, warm/dry Lactic Acid Level Laboratory Tests Test 10/26/18 09:03 Lactic Acid Level 3.73 MMOL/L (0.50-2.00) *H Within 3hrs of presentation: Admin fluids, Admin ABX, Blood cultures prior to ABX's, Focus exam, Lactate level (HD) Progress/Results/Core Measures Suspected Sepsis Recent Fever Within 48 Hours: Yes Infection Criteria Present: Suspected New Infection New/Unexplained Altered Menta: No Within 3hrs of presentation: Admin fluids, Admin ABX, Blood cultures prior to ABX's, Focus exam, Lactate level SIRS Temperature: Pulse: Respiratory Rate: Laboratory Tests 10/26/18 09:03: White Blood Count 3.8L Blood Pressure / Mean: 10/26/18 09:03: Lactic Acid Level 3.73*H Laboratory Tests 10/26/18 09:03: Creatinine 4.86H, INR Comment 1.6H, Platelet Count 22*L, Total Bilirubin 1.4H Results/Orders Lab Results Laboratory Tests Test 10/26/18 09:03 10/26/18 09:07 Range/Units White Blood Count 3.8 L 4.3-11.0 10^3/uL Red Blood Count 3.37 L 4.35-5.85 10^6/uL Hemoglobin 10.3 L 11.5-16.0 G/DL Hematocrit 32 L 35-52 % Mean Corpuscular Volume 94 80-99 FL Mean Corpuscular Hemoglobin 31 25-34 PG Mean Corpuscular Hemoglobin Concent 32 32-36 G/DL Red Cell Distribution Width 14.6 H 10.0-14.5 % Platelet Count 22 *L 130-400 10^3/uL Mean Platelet Volume 7.4-10.4 FL Neutrophils (%) (Auto) 92 H 42-75 % Lymphocytes (%) (Auto) 1 L 12-44 % Monocytes (%) (Auto) 7 0-12 % Eosinophils (%) (Auto) 0 0-10 % Basophils (%) (Auto) 0 0-10 % Neutrophils # (Auto) 3.5 1.8-7.8 X 10^3 Lymphocytes # (Auto) 0.1 L 1.0-4.0 X 10^3 Monocytes # (Auto) 0.3 0.0-1.0 X 10^3 Eosinophils # (Auto) 0.0 0.0-0.3 10^3/uL Basophils # (Auto) 0.0 0.0-0.1 10^3/uL Neutrophils % (Manual) 53 % Lymphocytes % (Manual) 2 % Monocytes % (Manual) 6 % Eosinophils % (Manual) 0 % Basophils % (Manual) 0 % Metamyelocytes % 9 % Band Neutrophils 30 % Polychromasia SLIGHT Basophilic Stippling SLIGHT Anisocytosis SLIGHT Prothrombin Time 19.4 H 12.2-14.7 SEC INR Comment 1.6 H 0.8-1.4 Activated Partial Thromboplast Time 103 H 24-35 SEC Urine Color YELLOW Urine Clarity CLEAR Urine pH 5 5-9 Urine Specific [place] 1.020 1.016-1.022 Urine Protein 4+ NEGATIVE Urine Glucose (UA) NEGATIVE NEGATIVE Urine Ketones NEGATIVE NEGATIVE Urine Nitrite POSITIVE H NEGATIVE Urine Bilirubin 1+ H NEGATIVE Urine Urobilinogen NORMAL NORMAL MG/DL Urine Leukocyte Esterase 1+ H NEGATIVE Urine RBC (Auto) 5+ H NEGATIVE Urine RBC TNTC H /HPF Urine WBC 0-2 /HPF Urine Squamous Epithelial Cells NONE /HPF Urine Crystals NONE /LPF Urine Amorphous Sediment MOD CHELI URATES H /LPF Urine Bacteria NEGATIVE /HPF Urine Casts NONE /LPF Urine Mucus NEGATIVE /LPF Urine Culture Indicated CULTURE PENDING Sodium Level 132 L 135-145 MMOL/L Potassium Level 3.2 L 3.6-5.0 MMOL/L Chloride Level 98 98-107 MMOL/L Carbon Dioxide Level 20 L 21-32 MMOL/L Anion Gap 14 5-14 MMOL/L Blood Urea Nitrogen 35 H 7-18 MG/DL Creatinine 4.86 H 0.60-1.30 MG/DL Estimat Glomerular Filtration Rate 9 BUN/Creatinine Ratio 7 Glucose Level 103 70-105 MG/DL Lactic Acid Level 3.73 *H 0.50-2.00 MMOL/L Calcium Level 7.9 L 8.5-10.1 MG/DL Corrected Calcium 8.9 8.5-10.1 MG/DL Total Bilirubin 1.4 H 0.1-1.0 MG/DL Aspartate Amino Transf (AST/SGOT) 34 5-34 U/L Alanine Aminotransferase (ALT/SGPT) 18 0-55 U/L Alkaline Phosphatase 88 40-136 U/L Total Protein 5.8 L 6.4-8.2 GM/DL Albumin 2.8 L 3.2-4.5 GM/DL Group A Streptococcus Screen NEGATIVE NEGATIVE Micro Results Microbiology 10/26/18 Influenza Types A,B Antigen (NIYA) - Final, Complete My Orders Orders - HANS MONTEIRO Cbc With Automated Diff (10/26/18 08:55) Comprehensive Metabolic Panel (10/26/18 08:55) Blood Culture (10/26/18 08:55) Sputum Culture (10/26/18 08:55) Protime With Inr (10/26/18 08:55) Partial Thromboplastin Time (10/26/18 08:55) Chest 1 View, Ap/Pa Only (10/26/18 08:55) Ed Iv/Invasive Line Start (10/26/18 08:55) Ed Iv/Invasive Line Start (10/26/18 08:55) Vital Signs Adult Sepsis Patie Q15M (10/26/18 08:55) Ondansetron Injection (Zofran Injectio (10/26/18 09:00) O2 (10/26/18 08:55) Remove Rings In Anticipation O (10/26/18 08:55) Lactic Acid Analyzer (10/26/18 08:55) Ns Iv 1000 Ml (Sodium Chloride 0.9%) (10/26/18 09:00) Cefepime Injection (Maxipime Injection) (10/26/18 09:00) Vancomycin Injection (Vancomycin Injecti (10/26/18 09:00) Ed Iv/Invasive Line Start (10/26/18 08:55) Urinalysis (10/26/18 08:59) Urine Culture (10/26/18 08:59) Straight Cath For Spec.-Adult (10/26/18 08:59) Ct Abdomen/Pelvis Wo (10/26/18 09:18) Manual Differential (10/26/18 09:03) Rapid Strep A Screen (10/26/18 09:53) Influenza A And B Antigens (10/26/18 09:53) Ibuprofen Tablet (Motrin Tablet) (10/26/18 10:45) C Difficile Ag + Toxin A/B. (10/26/18 11:16) Isolation Central Supply Req (10/26/18 11:16) Medications Given in ED Current Medications Medications Dose Ordered Sig/Arabella Route Start Time Stop Time Status Last Admin Dose Admin Cefepime HCl 1000 mg/Sterile Water 10 ml @ 200 mls/hr ONCE ONCE IV 10/26/18 09:00 10/26/18 09:02 DC 10/26/18 09:50 200 MLS/HR Ibuprofen 800 mg ONCE ONCE PO 10/26/18 10:45 10/26/18 10:46 DC 10/26/18 10:48 800 MG Sodium Chloride 1,750 ml @ 1,750 mls/hr ONCE ONCE IV 10/26/18 09:00 10/26/18 09:59 DC 10/26/18 09:15 1,750 MLS/HR Vancomycin HCl 1000 mg/Sodium Chloride 250 ml @ 250 mls/hr ONCE ONCE IV 10/26/18 09:00 10/26/18 09:59 DC 10/26/18 10:45 250 MLS/HR Vital Signs/I&O 10/26/18 10/26/18 08:40 11:46 Temp 100.3 99.8 Pulse 76 73 Resp 16 16 B/P (MAP) 141/69 (93) 125/59 (81) Pulse Ox 96 97 O2 Delivery Room Air Room Air Capillary Refill : Progress Note #1: Time: 09:20 Progress Note Septic workup, 20 mL/kg fluid bolus. Plan to send her to so she can have her appropriate consultants as well as inpatient dialysis. Cefepime and vancomycin. Suspect possible line infection versus UTI. She's having some right upper quadrant belly pain so we'll get a noncontrast CT of the abdomen and pelvis. Progress Note #2: Time: 10:37 Progress Note Patient has a headache and she has consented to take ibuprofen. She in her would greatly like to go by private vehicle. Her vital signs are stable since she's been here. Her pancytopenia is not necessarily new. Then discussed the risks, benefits and alternatives and are okay with letting her go by private vehicle. Diagnostic Imaging Diagonstic Imaging: Xray Plain Films/CT/US/NM/MRI: chest (1v) Comments NAME: SOLITARIO HONG MED REC#: [id number] PT STATUS: REG ER : 1960 PHYSICIAN: HANS MONTEIRO MD ADMIT DATE: 10/26/18/ER Draft Date of Exam:10/26/18 CHEST 1 VIEW, AP/PA ONLY EXAMINATION: Chest radiograph, portable AP view. DATE: October 26, 2018 at 0938 hours. INDICATION: 58-year-old female, fever. Right upper quadrant abdominal pain. COMPARISON: September 09, 2013. FINDINGS: There is a left-sided central venous line with tip overlying the lower SVC. Stable overall appearance of the cardiomediastinal silhouette. There is no identified pneumothorax. There is no large pleural effusion. There is no identified interval focal airspace consolidation. IMPRESSION: 1. No identified acute cardiopulmonary abnormality. 2. Left-sided central venous line overlies the lower SVC. Dictated on workstation # [id number] Dict: 10/26/1843 Trans: 10/26/18 0951 [facility] [place] [id number] Interpreted by: NOLBERTO DAHL MD Electronically signed by: Reviewed: Reviewed by Me Diagonstic Imaging: CT (without IV contrast) Plain Films/CT/US/NM/MRI: abdomen, pelvis Comments NAME: SOLITARIO HONG [facility] REC#: [id number] PT STATUS: REG ER : 1960 PHYSICIAN: HANS MONTEIRO MD ADMIT DATE: 10/26/18/ER Draft Date of Exam:10/26/18 CT ABDOMEN/PELVIS WO PROCEDURE: CT abdomen and pelvis without contrast. TECHNIQUE: Multiple contiguous axial images were obtained through the abdomen and pelvis without the use of intravenous contrast. Auto Exposure Controls were utilized during the CT exam to meet ALARA standards for radiation dose reduction. INDICATION: Right upper quadrant pain with fever. COMPARISON: 02/01/2018. DISCUSSION: The lung bases are unremarkable. Heart is upper limits of normal in size. The gallbladder is distended, unchanged. Nodular morphology of the liver suggest chronic liver disease. There is marked splenomegaly measuring 18.6 x 15.3 x 8 cm. There are a few varices noted near the spleen. Additional varices are noted within the anterior body wall, unchanged. The left kidney is markedly atrophied, stable. The right kidney shows compensatory hypertrophy with no stone or hydronephrosis. The aorta is normal in caliber and contain scattered atherosclerotic plaque. The stomach, pancreas, and adrenal glands are unremarkable. There is no ascites or pathologically enlarged lymph nodes identified. Uterus is surgically absent. Urinary bladder is decompressed. No obstruction, pneumatosis, pneumoperitoneum. The appendix is not visualized. No acute osseous abnormality identified. IMPRESSION: 1. Changes of cirrhosis with portal hypertension as discussed, stable. 2. Chronic atrophy of the left kidney, stable. 3. No other acute abnormality identified. Dictated on workstation # [id number] Dict: 10/26/18 1000 Trans: 10/26/18 1006 [id number] Interpreted by: NITO ROY MD Electronically signed by: Reviewed: Reviewed by Me Departure Impression Primary Impression: Sepsis Qualified Codes: A41.9 - Sepsis, unspecified organism Additional Impressions: UTI (urinary tract infection) Qualified Codes: N30.01 - Acute cystitis with hematuria Central line insertion site infection Qualified Codes: T80.212A - Local infection due to central venous catheter, initial encounter Pancytopenia Chronic liver failure Qualified Codes: K72.10 - Chronic hepatic failure without coma End stage renal disease on dialysis Disposition: ADMITTED INPATIENT Condition: Stable Transfer Time Spoke to Accepting Phy: 11:10 Transfer Progress Notes Discussed the case with triage nurse KIRAN at [facility] at 10:30. He will call back with physician. 1110: Dr Cordero accepting. Kiran will call back with a room number. Transfer Time: 12:00 Transfer Facility: [facility] Method of Transfer: Private Vehicle Departure-Patient Inst. Referrals: MIKE MEDINA MD (PCP/Family) Primary Care Physician Copy Copies To 1: MIKE MEDINA MD, TITUS J Oct 26, 2018 09:07
[2018-10-26 09:17] LABS: BASOPHILS % (AUTO) 0 % (0-10); EOSINOPHILS % (AUTO) 0 % (0-10); HEMATOCRIT 32 % (35-52); HEMOGLOBIN 10.3 G/DL (11.5-16.0); LYMPHOCYTES # (AUTO) 0.1 X 10^3 (1.0-4.0); LYMPHOCYTES % (AUTO) 1 % (12-44); MEAN CORPUSCULAR HEMOGLOBIN 31 PG (25-34); MEAN CORPUSCULAR HGB CONC 32 G/DL (32-36); MEAN CORPUSCULAR VOLUME 94 FL (80-99); MONOCYTES # (AUTO) 0.3 X 10^3 (0.0-1.0); MONOCYTES % (AUTO) 7 % (0-12); NEUTROPHILS # (AUTO) 3.5 X 10^3 (1.8-7.8); NEUTROPHILS % (AUTO) 92 % (42-75); RED CELL DISTRIBUTION WIDTH 14.6 % (10.0-14.5); WHITE BLOOD COUNT 3.8 10^3/uL (4.3-11.0)
[2018-10-26 09:32] LABS: INR 1.6 (0.8-1.4); PROTHROMBIN TIME PATIENT 19.4 SEC (12.2-14.7)
[2018-10-26 09:33] LABS: PLATELET COUNT 22 10^3/uL (130-400)
[2018-10-26 09:36] LABS: CLARITY,URINE CLEAR; COLOR,URINE YELLOW; GLUCOSE, URINE (UA) NEGATIVE (NEGATIVE); KETONES,URINE NEGATIVE (NEGATIVE); LEUKOCYTE ESTERASE ,URINE 1+ (NEGATIVE); NITRITE,URINE POSITIVE (NEGATIVE); PH,URINE 5 (5-9); PROTEIN,URINE 4+ (NEGATIVE); UROBILINOGEN,URINE NORMAL (NORMAL)
[2018-10-26 09:40] LABS: ALBUMIN 2.8 GM/DL (3.2-4.5); BILIRUBIN,TOTAL 1.4 MG/DL (0.1-1.0); CALCIUM 7.9 MG/DL (8.5-10.1); CREATININE SERUM 4.86 MG/DL (0.60-1.30); POTASSIUM 3.2 MMOL/L (3.6-5.0); TOTAL PROTEIN 5.8 GM/DL (6.4-8.2)
[2018-10-26 09:43] LABS: BACTERIA,URINE NEGATIVE /HPF; BILIRUBIN,URINE 1+ (NEGATIVE); RBC,URINE TNTC /HPF; WBC,URINE 0-2 /HPF
[2018-10-26 09:44] LABS: AMORPHOUS SEDIMENT,UR MOD AMOR URATES /LPF
--- NOTE | 2018-10-26 09:51 | Diagnostic Imaging Report ---
EXAMINATION: Chest radiograph, portable AP view. DATE: October 26, 2018 at 0938 hours. INDICATION: 58-year-old female, fever. Right upper quadrant abdominal pain. COMPARISON: September 09, 2013. FINDINGS: There is a left-sided central venous line with tip overlying the lower SVC. Stable overall appearance of the cardiomediastinal silhouette. There is no identified pneumothorax. There is no large pleural effusion. There is no identified interval focal airspace consolidation. IMPRESSION: 1. No identified acute cardiopulmonary abnormality. 2. Left-sided central venous line overlies the lower SVC. Dictated by: Dictated on workstation # [id number]
[2018-10-26 09:59] LABS: BAND NEUTROPHILS 30 %; BASOPHILS % (MANUAL) 0 %; EOSINOPHILS % (MANUAL) 0 %; LYMPHOCYTES % (MANUAL) 2 %; METAMYELOCYTES % 9 %; MONOCYTES % (MANUAL) 6 %; NEUTROPHILS % (MANUAL) 53 %
[2018-10-26 10:00] LABS: ANISOCYTOSIS SLIGHT; POLYCHROMASIA SLIGHT
--- NOTE | 2018-10-26 10:06 | Diagnostic Imaging Report ---
PROCEDURE: CT abdomen and pelvis without contrast. TECHNIQUE: Multiple contiguous axial images were obtained through the abdomen and pelvis without the use of intravenous contrast. Auto Exposure Controls were utilized during the CT exam to meet ALARA standards for radiation dose reduction. INDICATION: Right upper quadrant pain with fever. COMPARISON: 02/01/2018. DISCUSSION: The lung bases are unremarkable. Heart is upper limits of normal in size. The gallbladder is distended, unchanged. Nodular morphology of the liver suggest chronic liver disease. There is marked splenomegaly measuring 18.6 x 15.3 x 8 cm. There are a few varices noted near the spleen. Additional varices are noted within the anterior body wall, unchanged. The left kidney is markedly atrophied, stable. The right kidney shows compensatory hypertrophy with no stone or hydronephrosis. The aorta is normal in caliber and contain scattered atherosclerotic plaque. The stomach, pancreas, and adrenal glands are unremarkable. There is no ascites or pathologically enlarged lymph nodes identified. Uterus is surgically absent. Urinary bladder is decompressed. No obstruction, pneumatosis, pneumoperitoneum. The appendix is not visualized. No acute osseous abnormality identified. IMPRESSION: 1. Changes of cirrhosis with portal hypertension as discussed, stable. 2. Chronic atrophy of the left kidney, stable. 3. No other acute abnormality identified. Dictated by: Dictated on workstation # [id number]
[2018-10-26] MEDS ORDERED: IBUPROFEN 800 MG (MOTRIN) TAB PO ONE (10:45)
[2018-10-26 11:46] VITALS: BP 125/59
[2018-10-26 12:10] VITALS: BP 125/59
== END 2018-10-26 12:10 | disposition short-term general hospital (02) ==
LOC: EDUNIT# 08:36 → ER 08:37
DX: T80.212A Local infection due to central venous catheter, initial encounter (principal); A41.89 Other specified sepsis; N39.0 Urinary tract infection, site not specified; D61.818 Other pancytopenia; K72.10 Chronic hepatic failure without coma; I12.0 Hypertensive chronic kidney disease with stage 5 chronic kidney disease or end stage renal disease; N18.6 End stage renal disease; B19.20 Unspecified viral hepatitis C without hepatic coma; J45.909 Unspecified asthma, uncomplicated; K21.9 Gastro-esophageal reflux disease without esophagitis; Z85.41 Personal history of malignant neoplasm of cervix uteri; Z99.2 Dependence on renal dialysis; Z88.0 Allergy status to penicillin; Z88.2 Allergy status to sulfonamides; Z87.891 Personal history of nicotine dependence; Z98.51 Tubal ligation status; Z90.710 Acquired absence of both cervix and uterus
CPT/HCPCS: 36415; 51701; 71045; 74176; 80053; 81000; 83605; 85007; 85027; 85610; 85730; 87040; 87088; 87186; 87430; 87804

== ENCOUNTER → 2018-11-22 | Outpatient (CLI) | payer BC, MEDICARE | LOC: LAB 12:04 | PROVIDERS: ATTEND Internal Medicine Gastroenterology | DX: D61.818 Other pancytopenia (principal) | CPT/HCPCS: 87040 ==

== ENCOUNTER → 2018-11-22 | Outpatient (CLI) | payer BC, MEDICARE ==
--- NOTE | 2018-11-22 12:09 | Diagnostic Imaging Report ---
INDICATION: Pancytopenia TECHNIQUE: PA and lateral views of the chest are obtained. COMPARISON: Comparison is made to study of 10/26/2018. FINDINGS: Overall heart size and pulmonary vascularity are within normal limits. There is no pneumothorax or consolidation. Right tunneled jugular catheter appears to be in good position. There is no evidence of complication. IMPRESSION: Unremarkable chest. Dictated by: Dictated on workstation # [id number]
== END ==
LOC: RAD 10:57
PROVIDERS: ATTEND Internal Medicine Gastroenterology
DX: D61.818 Other pancytopenia (principal)
CPT/HCPCS: 71046

== ENCOUNTER 2018-12-10 15:58 | Emergency (ER) | payer BC, MEDICARE ==
--- NOTE | 2018-12-10 16:05 | NUR ---
patient here to get 1 unit of blood. patient offered evalutation and/or treatment, but doesn't want to be seen in the ER. order being sent from her dr to do outpatient.
--- NOTE | 2018-12-10 16:57 | NUR ---
patient updated that we still haven't recieved out patient order for blood. [facility]ERY[facility] was called and the office is closed for the evening. patient said she would just go home and call them in the morning and come back tomorrow to get the transfusion. informed patient we would call her this evening if an order ends up getting faxed.
== END 2018-12-10 16:06 | disposition left against medical advice (07) ==
LOC: EDUNIT# 15:58 → ER 16:00
DX: R50.9 Fever, unspecified (principal)

== ENCOUNTER 2018-12-11 15:42 | Outpatient (CLI) | payer BC, MEDICARE ==
[~2018-12-11] VITALS: Ht 152.4 cm; Wt 81.8 kg
[2018-12-11 15:45] VITALS: BP 120/58
[2018-12-11] MEDS ORDERED: NS IV 500 ML 500 ML IV SCH (16:15)
[2018-12-11 17:07] VITALS: BP 121/63
[2018-12-11 17:23] VITALS: BP 125/56
[2018-12-11 18:29] VITALS: BP 145/69
[2018-12-11 18:59] LABS: HEMOGLOBIN 6.6 G/DL (11.5-16.0)
== END 2018-12-11 18:45 | disposition home or self-care (01) ==
LOC: SDC 15:42
PROVIDERS: ATTEND Internal Medicine Gastroenterology
DX: N18.6 End stage renal disease (principal); Z99.2 Dependence on renal dialysis; K74.60 Unspecified cirrhosis of liver; D63.1 Anemia in chronic kidney disease
CPT/HCPCS: 36415; 36430; 85014; 85018; 86850; 86900; 86901; 86920

== ENCOUNTER 2018-12-13 08:26 | Outpatient (CLI) | payer BC, MEDICARE ==
[~2018-12-13] VITALS: Ht 157 cm; Wt 81.8 kg
[2018-12-13] VITALS (7 sets, daily range): BP systolic 132–178; BP diastolic 62–94
[2018-12-13 08:50] LABS: MEAN CORPUSCULAR HEMOGLOBIN 29 PG (25-34); MEAN CORPUSCULAR HGB CONC 32 G/DL (32-36); MEAN CORPUSCULAR VOLUME 92 FL (80-99)
[2018-12-13] MEDS ORDERED: NS IV 1000 ML 1,000 ML IV SCH (09:00)
[2018-12-13 09:03] LABS: WHITE BLOOD COUNT 0.8 10^3/uL (4.3-11.0)
[2018-12-13 09:04] LABS: HEMATOCRIT 20 % (35-52); HEMOGLOBIN 6.5 G/DL (11.5-16.0); PLATELET COUNT 17 10^3/uL (130-400)
[2018-12-13 12:24] LABS: HEMOGLOBIN 7.6 G/DL (11.5-16.0)
[2018-12-13] MEDS ORDERED: METH5TAB2 PO ×2 (12:59)
[2018-12-13 14:55] LABS: HEMOGLOBIN 8.5 G/DL (11.5-16.0)
== END 2018-12-13 14:45 | disposition home or self-care (01) ==
LOC: SDC 08:26
PROVIDERS: ATTEND Internal Medicine Gastroenterology
DX: D63.1 Anemia in chronic kidney disease (principal); N18.6 End stage renal disease
CPT/HCPCS: 36415; 36430; 85014; 85018; 85027; 86850; 86900; 86901; 86920

== ENCOUNTER → 2018-12-14 | Outpatient (CLI) | payer BC, MEDICARE ==
[~2018-12-14] MED LIST changes: +METH5TAB2 PO
[2018-12-14 13:44] LABS: HEMATOCRIT 26 % (35-52); HEMOGLOBIN 8.7 G/DL (11.5-16.0); MEAN CORPUSCULAR HEMOGLOBIN 30 PG (25-34); MEAN CORPUSCULAR HGB CONC 33 G/DL (32-36); MEAN CORPUSCULAR VOLUME 90 FL (80-99); RED CELL DISTRIBUTION WIDTH 15.6 % (10.0-14.5)
[2018-12-14 13:56] LABS: PLATELET COUNT 11 10^3/uL (130-400)
== END ==
LOC: LAB 13:26
PROVIDERS: ATTEND Internal Medicine Gastroenterology
DX: N18.6 End stage renal disease (principal); D63.1 Anemia in chronic kidney disease
CPT/HCPCS: 36415; 85027

== ENCOUNTER 2018-12-27 09:56 | Outpatient (RCR) | payer BC, MEDICARE | END 2019-03-27 | disposition home or self-care (01) | LOC: ONC 09:56 | PROVIDERS: ATTEND Internal Medicine Hematology & Oncology | DX: D61.818 Other pancytopenia (principal); K76.89 Other specified diseases of liver; B18.2 Chronic viral hepatitis C; I13.2 Hypertensive heart and chronic kidney disease with heart failure and with stage 5 chronic kidney disease, or end stage renal disease; N18.6 End stage renal disease; I50.9 Heart failure, unspecified; E66.01 Morbid (severe) obesity due to excess calories; K74.60 Unspecified cirrhosis of liver; L81.9 Disorder of pigmentation, unspecified; Z99.2 Dependence on renal dialysis; Z76.82 Awaiting organ transplant status; Z68.35 Body mass index [BMI] 35.0-35.9, adult; Z79.891 Long term (current) use of opiate analgesic; Z79.899 Other long term (current) drug therapy; Z72.0 Tobacco use | CPT/HCPCS: 99213 ==

== ENCOUNTER 2018-12-30 20:50 | Emergency (ER) | payer BC, MEDICARE ==
[~2018-12-30] VITALS: Ht 152.4 cm; Wt 83.0 kg
[2018-12-30 20:50] VITALS: BP 167/90
[2018-12-30 21:06] LABS: BASOPHILS % (AUTO) 0 % (0-10); EOSINOPHILS % (AUTO) 4 % (0-10); HEMATOCRIT 21 % (35-52); LYMPHOCYTES # (AUTO) 0.2 X 10^3 (1.0-4.0); LYMPHOCYTES % (AUTO) 26 % (12-44); MEAN CORPUSCULAR HGB CONC 33 G/DL (32-36); MEAN CORPUSCULAR VOLUME 91 FL (80-99); MEAN PLATELET VOLUME 11.8 FL (7.4-10.4); MONOCYTES # (AUTO) 0.1 X 10^3 (0.0-1.0); MONOCYTES % (AUTO) 16 % (0-12); NEUTROPHILS # (AUTO) 0.4 X 10^3 (1.8-7.8); NEUTROPHILS % (AUTO) 54 % (42-75); RED CELL DISTRIBUTION WIDTH 15.7 % (10.0-14.5)
--- NOTE | 2018-12-30 21:06 | NUR ---
Pt reports return of vision in affected eye at this time.
[2018-12-30 21:07] LABS: MEAN CORPUSCULAR HEMOGLOBIN 29 PG (25-34)
[2018-12-30 21:09] LABS: HEMOGLOBIN 6.9 G/DL (11.5-16.0); PLATELET COUNT 27 10^3/uL (130-400); WHITE BLOOD COUNT 0.8 10^3/uL (4.3-11.0)
--- NOTE | 2018-12-30 21:23 | Diagnostic Imaging Report ---
EXAMINATION: CT head without contrast. TECHNIQUE: Multiple contiguous axial images were obtained through the brain without the use of intravenous contrast. All CT scans use one or more of the following dose optimizing techniques: automated exposure control, MA and/or KvP adjustment based on a patient size and exam type, or iterative reconstruction. HISTORY: Dizziness COMPARISON: 05/15/2009 FINDINGS: The zamorano-white matter differentiation is normal. No mass effect or midline shift. The ventricles are normal in size and configuration. Basilar cisterns are patent. There are no intra- or extra-axial fluid collections. There is no intracranial hemorrhage. The orbits are normal. Paranasal sinuses are normal. Mastoid air cells are clear. No soft tissue abnormality is seen. No osseus lesions or fractures are seen. IMPRESSION: 1. No acute intracranial abnormality. Dictated by: Dictated on workstation # [id number]
[2018-12-30 21:25] LABS: ALANINE AMINOTRANSFERASE 24 U/L (0-55); ALBUMIN 3.3 GM/DL (3.2-4.5); ALKALINE PHOSPHATASE 154 U/L (40-136); BILIRUBIN,TOTAL 1.1 MG/DL (0.1-1.0); BUN/CREATININE RATIO 7; CALCIUM 8.8 MG/DL (8.5-10.1); CARBON DIOXIDE 23 MMOL/L (21-32); CHLORIDE 97 MMOL/L (98-107); CREATININE SERUM 5.08 MG/DL (0.60-1.30); GFR ESTIMATED 9; GLUCOSE 118 MG/DL (70-105); POTASSIUM 3.8 MMOL/L (3.6-5.0); SODIUM 134 MMOL/L (135-145); TOTAL PROTEIN 6.7 GM/DL (6.4-8.2)
[2018-12-30 21:26] LABS: FIBRIN DEGRADATION PRODUCTS 1.9 UG/ML (0.00-0.49); INR 1.3 (0.8-1.4); PROTHROMBIN TIME PATIENT 16.4 SEC (12.2-14.7)
--- NOTE | 2018-12-30 21:27 | Diagnostic Imaging Report ---
EXAMINATION: Chest 1 view HISTORY: Dizziness FINDINGS: Comparison is 11/22/2018. Right internal jugular central venous catheter tip terminates in the superior vena cava. Heart size is normal, with size accentuated by portable technique. No edema or pneumonia. No pleural effusion or pneumothorax. IMPRESSION: 1. Clear lungs. Dictated by: Dictated on workstation # [id number]
[2018-12-30 21:41] LABS: BILIRUBIN,URINE NEGATIVE (NEGATIVE); CLARITY,URINE SLIGHTLY CLOUDY; COLOR,URINE YELLOW; GLUCOSE, URINE (UA) NEGATIVE (NEGATIVE); KETONES,URINE NEGATIVE (NEGATIVE); LEUKOCYTE ESTERASE ,URINE NEGATIVE (NEGATIVE); NITRITE,URINE NEGATIVE (NEGATIVE); PH,URINE 5 (5-9); PROTEIN,URINE 4+ (NEGATIVE)
[2018-12-30 21:47] LABS: BACTERIA,URINE LARGE /HPF; RBC,URINE 50-100 /HPF; WBC,URINE RARE /HPF
[2018-12-30 21:48] LABS: SQUAMOUS EPITHELIAL CELL,UR >50 /HPF
--- NOTE | 2018-12-30 22:27 | ED Neurological Problem ---
General Chief Complaint: Neuro-Stroke Like Symptoms Stated Complaint: DIZZINESS/VISION LOSS R EYE Nursing Triage Note: Pt to ED with c/o confusion, dizziness, headache, and complete vision loss in the R eye that began at 1900. Nursing Sepsis Screen: No Definite Risk Source: patient, family () Exam Limitations: no limitations History of Present Illness Date Seen by Provider: Dec 30, 2018 Time Seen by Provider: 20:50 Initial Comments 58-year-old female who presents to the emergency room with complaints of vision loss in her right eye that began at 1900 tonight. She reports that she started to have a headache around 1700 tonight and became dizzy and started to have blurred vision out of the right eye but at 1700 had complete total vision loss. She has no other neurological deficits and is alert and oriented on arrival to the emergency room. She is currently on dialysis and on the transplant list for liver and kidney. She has history of cirrhosis due to hepatitis C. During her initial assessment she had a return of vision where she could see shapes and up close but still having very blurred vision. She denies, denies eye pain, fevers, nausea vomiting, diarrhea, chest pain. She does have a hemodialysis access to her right chest wall. Associated Symptoms: vision changes Allergies and Home Medications Allergies Coded Allergies: Penicillins (Verified Allergy, Unknown, 08/27/08) Sulfa (Sulfonamide Antibiotics) (Verified Allergy, Unknown, 08/27/08) Home Medications Albuterol Sulfate 18 Gm Hfa.aer.ad, 2 PUFF INH Q4H PRN for SHORTNESS OF BREATH, (Reported) Cholecalciferol (Vitamin D3) 2,000 Unit Capsule, 2,000 UNIT PO DAILY, (Reported) Diphenhydramine HCl 25 Mg Capsule, 50 MG PO DAILY PRN for ITCHING, (Reported) TAKES 2 (25MG) CAPSULES Methadone HCl 5 Mg Tablet, 5 MG PO DAILY, (Reported) Methadone HCl 5 Mg Tablet, 2.5 MG PO HS, (Reported) Polyethylene Glycol 3350 17 Gm Powd.pack, 17 GM PO DAILY PRN for CONSTIPATION, (Reported) Zolpidem Tartrate 5 Mg Tablet, 5 MG PO HS PRN for SLEEP, (Reported) Patient Home Medication List Home Medication List Reviewed: Yes Review of Systems Review of Systems Constitutional: see HPI; No chills; dizziness; No fever, No weakness Eyes: See HPI, Blindness, Blurred Vision All Other Systems Reviewed Negative Unless Noted: Yes Past Zkejvdf-Aswfvv-Jvrfap Hx Past Med/Social Hx: Reviewed Nursing Past Med/Soc Hx Patient Social History Alcohol Use: Denies Use Recreational Drug Use: Yes (RECOVERING DRUG ABUSER) Former Smoker, Quit: Dec 19, 2005 2nd Hand Smoke Exposure: No Recent Foreign Travel: No Contact w/Someone Who Travel: No Recent Infectious Disease Expo: No Recent Hopitalizations: No Physical Abuse: No Sexual Abuse: No Mistreated: No Fear: No Immunizations Up To Date Tetanus Booster (TDap): Less than 5yrs Date of Pneumonia Vaccine: June 27, 2011 Date of Influenza Vaccine: Dec 21, 2017 Seasonal Allergies Seasonal Allergies: Yes Past Medical History Surgeries: Yes Hysterectomy, Tubal Ligation Respiratory: Yes Asthma Cardiac: Yes Heart Murmur, Hypertension Neurological: No 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 Physical Exam Vital Signs Vital Signs - First Documented Capillary Refill : Less Than 3 Seconds Height, Weight, BMI Height: 5'0" Weight: 180lbs. 0.0oz. 81.513370nl; 35.00 BMI Method:Stated General Appearance: WD/WN, no apparent distress HEENT: PERRL/EOMI, normal ENT inspection, TMs normal, pharynx normal Neck: non-tender, full range of motion, supple, normal inspection Respiratory: chest non-tender, lungs clear, normal breath sounds, no respiratory distress, no accessory muscle use, respiratory distress Cardiovascular: normal peripheral pulses, regular rate, rhythm, no edema, no gallop, no JVD, no murmur Gastrointestinal: normal bowel sounds, non tender, soft, no organomegaly, no pulsatile mass Extremities: normal capillary refill Neurologic/Psychiatric: alert, normal mood/affect, oriented x 3 Crainal Nerves: normal hearing, normal speech, PERRL Coordination/Gait: normal finger to nose, normal gait Skin: normal color, warm/dry Stroke NIH Stroke Scale Assessment Level of Consciousness: 0=Alert (0), Level of Consciousness-Questions: 0=Answers both month/age (0), LOC Commands: 0=Performs both tasks (0), Visual Llamas: 1=Partial hemianopia (1), Facial Movement (Facial Paresis): 0=Normal symmetrical mnt (0), Motor Function-Arms Right: 0=No drift (0), Motor Function-Arms Left: 0=No drift (0), Motor Function-Legs Right: 0=No drift (0), Motor Function-Legs Left: 0=No drift (0), Limb Ataxia: 0=Absent (0), Sensory: 0=Normal:no loss (0), Best Language: 0=No aphasia (0), Dysarthria: 0=Normal (0), Extinction & Inattention: 0=No abnormality (0), Total: 1 Stroke Thrombolytic Exclusion Age 18 or Over: Yes Intracranial Neoplasm/Aneurysm: No Puncture of Non-Compressible V: Yes Platelets: Yes Progress/Results/Core Measures Results/Orders Lab Results Laboratory Tests Test 12/30/18 20:57 12/30/18 21:03 12/30/18 21:30 Range/Units White Blood Count 0.8 *L 4.3-11.0 10^3/uL Red Blood Count 2.34 L 4.35-5.85 10^6/uL Hemoglobin 6.9 *L 11.5-16.0 G/DL Hematocrit 21 L 35-52 % Mean Corpuscular Volume 91 80-99 FL Mean Corpuscular Hemoglobin 29 25-34 PG Mean Corpuscular Hemoglobin Concent 33 32-36 G/DL Red Cell Distribution Width 15.7 H 10.0-14.5 % Platelet Count 27 *L 130-400 10^3/uL Mean Platelet Volume 11.8 H 7.4-10.4 FL Neutrophils (%) (Auto) 54 42-75 % Lymphocytes (%) (Auto) 26 12-44 % Monocytes (%) (Auto) 16 H 0-12 % Eosinophils (%) (Auto) 4 0-10 % Basophils (%) (Auto) 0 0-10 % Neutrophils # (Auto) 0.4 L 1.8-7.8 X 10^3 Lymphocytes # (Auto) 0.2 L 1.0-4.0 X 10^3 Monocytes # (Auto) 0.1 0.0-1.0 X 10^3 Eosinophils # (Auto) 0.0 0.0-0.3 10^3/uL Basophils # (Auto) 0.0 0.0-0.1 10^3/uL Prothrombin Time 16.4 H 12.2-14.7 SEC INR Comment 1.3 0.8-1.4 Activated Partial Thromboplast Time 39 H 24-35 SEC D-Dimer 1.90 H 0.00-0.49 UG/ML Sodium Level 134 L 135-145 MMOL/L Potassium Level 3.8 3.6-5.0 MMOL/L Chloride Level 97 L 98-107 MMOL/L Carbon Dioxide Level 23 21-32 MMOL/L Anion Gap 14 5-14 MMOL/L Blood Urea Nitrogen 38 H 7-18 MG/DL Creatinine 5.08 H 0.60-1.30 MG/DL Estimat Glomerular Filtration Rate 9 BUN/Creatinine Ratio 7 Glucose Level 118 H 70-105 MG/DL Calcium Level 8.8 8.5-10.1 MG/DL Corrected Calcium 9.4 8.5-10.1 MG/DL Total Bilirubin 1.1 H 0.1-1.0 MG/DL Aspartate Amino Transf (AST/SGOT) 34 5-34 U/L Alanine Aminotransferase (ALT/SGPT) 24 0-55 U/L Alkaline Phosphatase 154 H 40-136 U/L Troponin I < 0.028 <0.028 NG/ML Total Protein 6.7 6.4-8.2 GM/DL Albumin 3.3 3.2-4.5 GM/DL Glucometer 124 H 70-110 MG/DL Urine Color YELLOW Urine Clarity SLIGHTLY CLOUDY Urine pH 5 5-9 Urine Specific [place] 1.020 1.016-1.022 Urine Protein 4+ NEGATIVE Urine Glucose (UA) NEGATIVE NEGATIVE Urine Ketones NEGATIVE NEGATIVE Urine Nitrite NEGATIVE NEGATIVE Urine Bilirubin NEGATIVE NEGATIVE Urine Urobilinogen NORMAL NORMAL MG/DL Urine Leukocyte Esterase NEGATIVE NEGATIVE Urine RBC (Auto) 5+ H NEGATIVE Urine RBC 50-100 H /HPF Urine WBC RARE /HPF Urine Squamous Epithelial Cells >50 H /HPF Urine Crystals NONE /LPF Urine Bacteria LARGE H /HPF Urine Casts NONE /LPF Urine Mucus NEGATIVE /LPF Urine Culture Indicated NO My Orders Orders - ALLISON MANZANO Cbc With Automated Diff (12/30/18 20:59) Protime With Inr (12/30/18 20:59) Partial Thromboplastin Time (12/30/18 20:59) Comprehensive Metabolic Panel (12/30/18 20:59) Fibrin Degradation Products (12/30/18 20:59) Troponin I (12/30/18 20:59) Ua Culture If Indicated (12/30/18 20:59) Chest 1 View, Ap/Pa Only (12/30/18 20:59) Ekg Tracing (12/30/18 20:59) Accucheck Stat ONCE (12/30/18 20:59) Ed Iv/Invasive Line Start (12/30/18 20:59) Ed Iv/Invasive Line Start (12/30/18 20:59) Vital Signs Stroke Patient Q15M (12/30/18 20:59) Ct Head Wo-R/O Stroke (12/30/18 20:59) O2 (12/30/18 20:59) Intake & Output 06,14,22 (12/30/18 20:59) Monitor-Rhythm Ecg Trace Only (12/30/18 20:59) Dysphagia Screening Tool (12/30/18 20:59) Post Thrombolytic Adminstratio (12/30/18 20:59) Ct Angio Head/Neck (12/30/18 22:13) Iohexol Injection (Omnipaque 350 Mg/Ml 1 (12/30/18 22:45) Ns (Ivpb) (Sodium Chloride 0.9% Ivpb Bag (12/30/18 22:45) Medications Given in ED Vital Signs/I&O 12/30/18 12/30/18 12/30/18 20:50 20:50 23:56 Temp 35.8 35.8 Pulse 79 80 79 Resp 18 18 18 B/P (MAP) 167/90 (115) 167/90 158/88 (115) Pulse Ox 98 98 98 O2 Delivery Room Air Room Air Blood Pressure Mean: 115 POS FSBG Bedside Testing Finger Stick Blood Glucose: 124 Blood Glucose Action Taken: urban notified Progress Progress Note : Time: 21:50 Progress Note I have seen and evaluated the patient. I've informed her of her initial labora tory and imaging studies. Her laboratory findings are all chronic. I did discuss with her a blood transfusion and she reports that they her doctors do not infuses until she is below 6.5. Istat read hgb of 7.1 She is scheduled to see Dr. Hernandez about the blood in her urine this week. She is scheduled for dialysis tomorrow morning at 0630. I have contacted neurologist Dr. Infante at this time and he recommends getting a CT angios of her neck and head and if they are normal to have her follow-up with her eye doctor and have a dilated fundus exam. She agrees to this further testings. 7: I have also contacted Dr. Rowan at this time and he recommends having the patient be at his clinic immediately after her dialysis for exam. 2315: Dr. Lei radiologist report significant findings on CT angios head neck. Patient agrees with plan of care, plans were discharged, return precautions were given. Departure Impression Primary Impression: Amaurosis fugax of right eye Disposition: HOME, SELF-CARE Condition: Stable/Unchanged Departure-Patient Inst. Decision time for Depature: 23:41 Referrals: MIKE MEDINA MD (PCP/Family) Primary Care Physician Patient Instructions: Hemodialysis Add. Discharge Instructions: It is very important that you do not miss dialysis appointment tomorrow morning. The contrast needs to be out of your system within 24 hours. After your dialysis appointment you need to go to your eye doctor for a dilated fundus exam. If Dr. Santiago cannot get you in you have an appointment at Dr. Rowan's office following your dialysis appointment at 9:30. Do not miss these appointments. Follow-up with your primary care provider in the next 1-2 days for recheck. Return back to the emergency room for worsening symptoms or concerns as needed. All discharge instructions reviewed with patient and/or family. Voiced understanding. ALLISON MANZANO Dec 30, 2018 22:27 POS
[2018-12-30] MEDS ORDERED: NS 100 ML (IVPB) BAG IV ONE (22:45)
[2018-12-30] MEDS ORDERED: IOHEXOL 350 MG/ML 100 ML (OMNIPAQUE 350) VIAL IV ONE (22:45)
[2018-12-30 23:56] VITALS: BP 158/88
--- NOTE | 2018-12-31 08:45 | Diagnostic Imaging Report ---
PROCEDURE: CT angiography of the head and CT angiography of the neck with and without contrast. TECHNIQUE: Contiguous noncontrast images were obtained from the skull base through the vertex. After intravenous contrast administration, helical CT angiography of the neck was performed. Source data was reformatted into 3D MIP projections. Delayed post contrast acquisition was also obtained. Auto Exposure Controls were utilized during the CT exam to meet ALARA standards for radiation dose reduction. INDICATION: Dizziness. Vision loss. COMPARISON: Noncontrast CT head from earlier same day. FINDINGS: CTA neck: Included portions of the aortic arch are grossly unremarkable. Origins of the major arch vessels are heavily obscured secondary to metallic beam hardening artifact from contrast bolus within the left subclavian vein and SVC. There is also moderate mottle artifact. There is grossly normal opacification of the more distal downstream portions of the bilateral common carotid arteries. There is mild eccentric calcified atherosclerosis of the left carotid bulb extending into the origin of the left internal carotid artery. There is however no evidence of focal hemodynamically significant stenosis of the bilateral carotid bulbs and internal carotid arteries. Additionally, there is no evidence of dissection or intraluminal thrombosis. Within the posterior circulation, right vertebral artery is slightly dominant. Proximal portions of bilateral vertebral arteries are also heavily obscured, but the mid and distal portions show normal enhancement. Osseous structures show no acute abnormalities. Degenerative changes of the cervical spine are noted. Included portions of the upper chest show no additional acute abnormalities. CTA venetie of Rajan: There is normal enhancement of the bilateral anterior and middle cerebral arteries. There is no evidence of large vessel occlusion, aneurysm, nor vascular malformation. Within the posterior circulation, there is normal appearance of the basilar artery. There is also normal enhancement of the bilateral superior cerebellar and posterior cerebral arteries. Right posterior communicating artery is patent, but is not well visualized on the left. There is no evidence of intraluminal thrombosis, aneurysm, nor vascular malformation within the posterior circulation. CT head: Post contrast images show no abnormal areas of enhancement. There is no mass effect or midline shift. There is no evidence of intra or extra-axial intracranial hemorrhage. Please note, posterior fossa is not entirely included on this portion of the exam. Bony calvarium is intact. Visualized portions of the paranasal sinuses and mastoid air cells are clear. IMPRESSION: 1. Suboptimal evaluation of the proximal portions of bilateral common carotid and vertebral arteries for reasons stated above. 2. Mild eccentric calcified atherosclerosis of the left carotid bulb and proximal left internal carotid artery. This could be assessed with dedicated Doppler evaluation. Otherwise, no evidence of intraluminal thrombosis, focal hemodynamically significant stenosis, nor dissection of the bilateral common or internal carotid arteries. 3. Unremarkable CTA of the head. No evidence of large vessel occlusion, aneurysm, nor vascular malformation. 4. No acute intracranial abnormality. No CT evidence of acute infarct, mass, nor hemorrhage. Dictated by: Dictated on workstation # [id number]
== END 2018-12-30 23:56 | disposition home or self-care (01) ==
LOC: EDUNIT# 20:50 → ER 20:51
DX: G45.3 Amaurosis fugax (principal); I10 Essential (primary) hypertension; J45.909 Unspecified asthma, uncomplicated; K21.9 Gastro-esophageal reflux disease without esophagitis; Z85.41 Personal history of malignant neoplasm of cervix uteri; Z87.442 Personal history of urinary calculi; Z90.710 Acquired absence of both cervix and uterus; Z98.51 Tubal ligation status; Z88.0 Allergy status to penicillin; Z88.2 Allergy status to sulfonamides; Z87.891 Personal history of nicotine dependence
CPT/HCPCS: 36415; 70450; 70496; 70498; 71045; 80053; 81000; 82962; 84484; 85025; 85379; 85610; 85730; 93005; 93041

== ENCOUNTER → 2019-05-14 | Outpatient (CLI) | payer BC, MEDICARE ==
[2019-05-14 11:59] LABS: BASOPHILS % (AUTO) 0 % (0-10); EOSINOPHILS % (AUTO) 1 % (0-10); HEMATOCRIT 37 % (35-52); HEMOGLOBIN 11.7 G/DL (11.5-16.0); LYMPHOCYTES # (AUTO) 0.5 X 10^3 (1.0-4.0); LYMPHOCYTES % (AUTO) 8 % (12-44); MEAN CORPUSCULAR HEMOGLOBIN 30 PG (25-34); MEAN CORPUSCULAR HGB CONC 32 G/DL (32-36); MEAN CORPUSCULAR VOLUME 95 FL (80-99); MEAN PLATELET VOLUME 13.5 FL (7.4-10.4); MONOCYTES # (AUTO) 0.4 X 10^3 (0.0-1.0); MONOCYTES % (AUTO) 7 % (0-12); NEUTROPHILS # (AUTO) 4.6 X 10^3 (1.8-7.8); NEUTROPHILS % (AUTO) 84 % (42-75); RED CELL DISTRIBUTION WIDTH 16.7 % (10.0-14.5); WHITE BLOOD COUNT 5.5 10^3/uL (4.3-11.0)
[2019-05-14 12:00] LABS: BILIRUBIN,URINE NEGATIVE (NEGATIVE); CLARITY,URINE SL CLOUDY; COLOR,URINE YELLOW; GLUCOSE, URINE (UA) NEGATIVE (NEGATIVE); KETONES,URINE NEGATIVE (NEGATIVE); LEUKOCYTE ESTERASE ,URINE NEGATIVE (NEGATIVE); NITRITE,URINE NEGATIVE (NEGATIVE); PH,URINE 7.5 (5-9); PROTEIN,URINE 3+ (NEGATIVE)
[2019-05-14 12:18] LABS: ALBUMIN 3.2 GM/DL (3.2-4.5); BILIRUBIN,TOTAL 1.9 MG/DL (0.1-1.0); CALCIUM 8.5 MG/DL (8.5-10.1); CREATININE SERUM 4.49 MG/DL (0.60-1.30); POTASSIUM 3.6 MMOL/L (3.6-5.0); TOTAL PROTEIN 6.4 GM/DL (6.4-8.2)
[2019-05-14 12:32] LABS: BACTERIA,URINE FEW /HPF; RBC,URINE 25-50 /HPF; WBC,URINE RARE /HPF
[2019-05-14 12:39] LABS: PLATELET COUNT 36 10^3/uL (130-400)
== END ==
LOC: LAB 11:22
PROVIDERS: ATTEND Internal Medicine Gastroenterology
DX: K74.60 Unspecified cirrhosis of liver (principal)
CPT/HCPCS: 36415; 80053; 81000; 85025; 87040; 87088

== ENCOUNTER → 2019-05-14 | Outpatient (CLI) | payer BC, MEDICARE | LOC: LAB 10:50 | PROVIDERS: ATTEND Pediatrics | DX: I82.C12 Acute embolism and thrombosis of left internal jugular vein (principal); D70.9 Neutropenia, unspecified ==

== ENCOUNTER → 2019-07-07 | Outpatient (CLI) | payer BC, MEDICARE ==
--- NOTE | 2019-07-07 17:36 | Diagnostic Imaging Report ---
HISTORY: Low back pain. COMPARISON: CT of the abdomen and pelvis from 10/26/2018. TECHNIQUE: Three views of the lumbar spine. FINDINGS: There are five lumbar-type vertebral bodies. There is grade 1 anterolisthesis at L4-L5 measuring 6 mm. Vertebral body heights are preserved. There are moderate degenerative changes at L2-L3 and mild degenerative changes at L5-S1. No acute fracture is seen. The bilateral sacroiliac joints are patent. Embolization coils are noted in the left upper abdomen. There is calcific atherosclerosis. IMPRESSION: 1. Degenerative changes in the lumbar spine, most pronounced at L2-L3 and grade 1 anterolisthesis at L4-L5. No acute fracture is seen. Dictated by: Dictated on workstation # [id number]
== END ==
LOC: RAD 15:30
PROVIDERS: ATTEND Family Medicine
DX: M47.816 Spondylosis without myelopathy or radiculopathy, lumbar region (principal)
CPT/HCPCS: 72100

== ENCOUNTER → 2019-09-01 | Outpatient (CLI) | payer BC, MEDICARE ==
--- NOTE | 2019-09-01 12:24 | Diagnostic Imaging Report ---
EXAMINATION: US Right Lower Extremity Venous Duplex. TECHNIQUE: Multiple Real-time grayscale images were obtained over the right lower extremity in various projections. Additional spectral analysis and color Doppler duplex images were also obtained. HISTORY: Pain and swelling in the right leg. COMPARISON: 05/09/2015. FINDINGS: The right common femoral vein, deep femoral vein, superficial femoral vein, and popliteal vein are patent with normal grayscale and Doppler appearance. There is normal respiratory variation and augmentation. IMPRESSION: No DVT of the right lower extremity. Dictated by: Dictated on workstation # [id number]
== END ==
LOC: RAD 11:21
PROVIDERS: ATTEND Family Medicine
DX: R22.41 Localized swelling, mass and lump, right lower limb (principal)

== ENCOUNTER 2019-10-21 18:25 | Emergency (ER) | payer BC, MEDICARE ==
[~2019-10-21] VITALS: Ht 152.4 cm; Wt 74.8 kg
[2019-10-21 18:50] LABS: BILIRUBIN,URINE NEGATIVE (NEGATIVE); CLARITY,URINE CLEAR; COLOR,URINE YELLOW; GLUCOSE, URINE (UA) NEGATIVE (NEGATIVE); KETONES,URINE NEGATIVE (NEGATIVE); LEUKOCYTE ESTERASE ,URINE NEGATIVE (NEGATIVE); NITRITE,URINE NEGATIVE (NEGATIVE); PH,URINE 5.5 (5-9); PROTEIN,URINE NEGATIVE (NEGATIVE)
[2019-10-21 19:03] LABS: BACTERIA,URINE TRACE /HPF; WBC,URINE RARE /HPF
[2019-10-21 19:21] LABS: BASOPHILS % (AUTO) 0 % (0-10); EOSINOPHILS % (AUTO) 0 % (0-10); HEMATOCRIT 28 % (35-52); HEMOGLOBIN 8.6 G/DL (11.5-16.0); LYMPHOCYTES # (AUTO) 0.3 X 10^3 (1.0-4.0); LYMPHOCYTES % (AUTO) 8 % (12-44); MEAN CORPUSCULAR HEMOGLOBIN 29 PG (25-34); MEAN CORPUSCULAR HGB CONC 30 G/DL (32-36); MEAN CORPUSCULAR VOLUME 96 FL (80-99); MEAN PLATELET VOLUME 11.7 FL (7.4-10.4); MONOCYTES # (AUTO) 0.3 X 10^3 (0.0-1.0); MONOCYTES % (AUTO) 8 % (0-12); NEUTROPHILS # (AUTO) 2.8 X 10^3 (1.8-7.8); NEUTROPHILS % (AUTO) 85 % (42-75); PLATELET COUNT 96 10^3/uL (130-400); RED CELL DISTRIBUTION WIDTH 16.7 % (10.0-14.5); WHITE BLOOD COUNT 3.4 10^3/uL (4.3-11.0)
[2019-10-21 19:50] LABS: ALANINE AMINOTRANSFERASE 18 U/L (0-55); ALBUMIN 3.6 GM/DL (3.2-4.5); ALKALINE PHOSPHATASE 91 U/L (40-136); BILIRUBIN,TOTAL 0.8 MG/DL (0.1-1.0); BUN/CREATININE RATIO 12; CALCIUM 9.6 MG/DL (8.5-10.1); CARBON DIOXIDE 27 MMOL/L (21-32); CHLORIDE 98 MMOL/L (98-107); CREATININE SERUM 0.91 MG/DL (0.60-1.30); GFR ESTIMATED > 60; GLUCOSE 239 MG/DL (70-105); POTASSIUM 4.1 MMOL/L (3.6-5.0); SODIUM 133 MMOL/L (135-145); TOTAL PROTEIN 6.5 GM/DL (6.4-8.2)
[2019-10-21] MEDS ORDERED: CEPH-507 PO (20:27)
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
[2019-10-21] MEDS ORDERED: CEPHALEXIN 250 MG (KEFLEX) CAP PO ONE (20:30)
[2019-10-21 20:47] VITALS: BP 121/87
== END 2019-10-21 20:47 | disposition home or self-care (01) ==
LOC: EDUNIT# 18:25 → ER 18:26
DX: L03.115 Cellulitis of right lower limb (principal); N19 Unspecified kidney failure; Z88.0 Allergy status to penicillin; Z88.2 Allergy status to sulfonamides; Z94.4 Liver transplant status; Z94.0 Kidney transplant status; Z87.891 Personal history of nicotine dependence; Z85.41 Personal history of malignant neoplasm of cervix uteri
CPT/HCPCS: 36415; 80053; 81000; 83605; 85025; 87040

== ENCOUNTER 2019-11-11 17:54 | Emergency (ER) | payer BC, MEDICARE ==
[2019-11-11] VITALS (7 sets, daily range): BP systolic 120–155; BP diastolic 59–73
[~2019-11-11] VITALS: Ht 152.4 cm; Wt 76.3 kg
[~2019-11-11 17:54] MED LIST changes: +CEPH-507 PO
[2019-11-11 18:53] LABS: BASOPHILS % (AUTO) 0 % (0-10); EOSINOPHILS % (AUTO) 1 % (0-10); HEMATOCRIT 23 % (35-52); LYMPHOCYTES # (AUTO) 0.5 X 10^3 (1.0-4.0); LYMPHOCYTES % (AUTO) 14 % (12-44); MEAN CORPUSCULAR HEMOGLOBIN 28 PG (25-34); MEAN CORPUSCULAR HGB CONC 28 G/DL (32-36); MEAN CORPUSCULAR VOLUME 99 FL (80-99); MEAN PLATELET VOLUME 11.6 FL (7.4-10.4); MONOCYTES # (AUTO) 0.6 X 10^3 (0.0-1.0); MONOCYTES % (AUTO) 16 % (0-12); NEUTROPHILS # (AUTO) 2.5 X 10^3 (1.8-7.8); NEUTROPHILS % (AUTO) 69 % (42-75); PLATELET COUNT 94 10^3/uL (130-400); WHITE BLOOD COUNT 3.7 10^3/uL (4.3-11.0)
[2019-11-11 18:55] LABS: HEMOGLOBIN 6.5 G/DL (11.5-16.0)
[2019-11-11 19:04] LABS: ALBUMIN 3.6 GM/DL (3.2-4.5)
[2019-11-11 19:05] LABS: CHLORIDE 101 MMOL/L (98-107); POTASSIUM 4.5 MMOL/L (3.6-5.0); SODIUM 136 MMOL/L (135-145)
[2019-11-11 19:06] LABS: CALCIUM 9.1 MG/DL (8.5-10.1); INR 1.1 (0.8-1.4); PROTHROMBIN TIME PATIENT 14.3 SEC (12.2-14.7)
[2019-11-11 19:07] LABS: GLUCOSE 116 MG/DL (70-105); TOTAL PROTEIN 6.4 GM/DL (6.4-8.2)
[2019-11-11 19:08] LABS: CARBON DIOXIDE 26 MMOL/L (21-32)
[2019-11-11 19:09] LABS: BILIRUBIN,TOTAL 0.5 MG/DL (0.1-1.0)
[2019-11-11 19:10] LABS: ALKALINE PHOSPHATASE 81 U/L (40-136)
[2019-11-11 19:11] LABS: CREATININE SERUM 0.81 MG/DL (0.60-1.30); GFR ESTIMATED > 60
[2019-11-11 19:12] LABS: BUN/CREATININE RATIO 17
[2019-11-11 19:13] LABS: ALANINE AMINOTRANSFERASE 17 U/L (0-55)
--- NOTE | 2019-11-11 19:14 | NUR ---
REPORT TO TERESA SANTIZO
[2019-11-11] MEDS ORDERED: NS IV 500 ML 500 ML ONE (19:39)
--- NOTE | 2019-11-11 19:47 | NUR ---
CONSENT OBTAINED FOR BLOOD TRANSFUSION
--- NOTE | 2019-11-11 20:15 | NUR ---
DR SAUCEDA TO ROOM TO DISCUSS FECAL SAMPLE FOR OCCULT. PATIENT REFUSES AND STATES SHE WILL FOLLOW UP AT NEXT WEEK.
--- NOTE | 2019-11-11 20:51 | ED General ---
General Chief Complaint: General Problems/Pain Stated Complaint: ABNORMAL LAB RESULTS/LOW HEMOGLOBIN Nursing Triage Note: AMB TO ROOM REPORTS HAS HAD LIVER/KIDNEY TRANSPLANT IN JUNE LAST WEEK HER HGB HAS BEEN LOW. WAS SENT BY [facility] TO ED. Nursing Sepsis Screen: No Definite Risk Source of Information: Patient, Old Records Exam Limitations: No Limitations History of Present Illness Date Seen by Provider: Nov 11, 2019 Time Seen by Provider: 18:44 Initial Comments This 59 year old woman presents to the ER with request for transfusion due to severe anemia. She had outpatient labs obtained by her specialty teams at [facility] and was contacted later today and directed to the ER for transfusion. Patient reports fatigue as her only symptom of anemia. She has no known source of blood loss. She reports a colonoscopy was performed at [facility] a year ago and was clean. She is on multiple immunosuppressive medications due to a kidney/liver transplant in June. She historically has struggled with pancytopenia and has required transfusion in the past. Allergies and Home Medications Allergies Coded Allergies: Penicillins (Verified Allergy, Unknown, 08/27/08) Sulfa (Sulfonamide Antibiotics) (Verified Allergy, Unknown, 08/27/08) Home Medications Albuterol Sulfate 18 Gm Hfa.aer.ad, 2 PUFF INH Q4H PRN for SHORTNESS OF BREATH, (Reported) Cephalexin 500 Mg Capsule, 500 MG PO TID Prescribed by: ALLISON MANZANO on 10/21/192026 Cholecalciferol (Vitamin D3) 2,000 Unit Capsule, 2,000 UNIT PO DAILY, (Reported) Diphenhydramine HCl 25 Mg Capsule, 50 MG PO DAILY PRN for ITCHING, (Reported) TAKES 2 (25MG) CAPSULES Methadone HCl 5 Mg Tablet, 5 MG PO DAILY, (Reported) Methadone HCl 5 Mg Tablet, 2.5 MG PO HS, (Reported) Polyethylene Glycol 3350 17 Gm Powd.pack, 17 GM PO DAILY PRN for CONSTIPATION, (Reported) Zolpidem Tartrate 5 Mg Tablet, 5 MG PO HS PRN for SLEEP, (Reported) Patient Home Medication List Home Medication List Reviewed: Yes Review of Systems Review of Systems Constitutional: see HPI EENTM: no symptoms reported Respiratory: no symptoms reported Cardiovascular: no symptoms reported Gastrointestinal: see HPI Genitourinary: see HPI : No Musculoskeletal: no symptoms reported Skin: no symptoms reported Psychiatric/Neurological: No Symptoms Reported Hematologic/Lymphatic: See HPI Immunological/Allergic: see HPI Past Tjrucnq-Tjjrij-Rfwecq Hx Past Med/Social Hx: Reviewed Nursing Past Med/Soc Hx Patient Social History Alcohol Use: Denies Use Recreational Drug Use: Yes (RECOVERING DRUG ABUSER) Smoking Status: Never a Smoker Former Smoker, Quit: Dec 19, 2005 2nd Hand Smoke Exposure: No Recent Foreign Travel: No Contact w/Someone Who Travel: No Recent Infectious Disease Expo: No Recent Hopitalizations: Yes (3 MONTHS AGO LIVER AND KIDNEY TRANSPLANT) Immunizations Up To Date Tetanus Booster (TDap): Less than 5yrs Date of Pneumonia Vaccine: June 27, 2011 Date of Influenza Vaccine: Dec 21, 2017 Seasonal Allergies Seasonal Allergies: Yes Past Medical History Surgeries: Yes Hysterectomy, Kidney Transplant, Liver Transplant, Tubal Ligation Respiratory: Yes Asthma Cardiac: Yes Heart Murmur, Hypertension Neurological: No 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 Physical Exam Vital Signs Vital Signs - First Documented 11/11/19 18:31 Temp 36.9 Pulse 76 Resp 18 B/P (MAP) 125/102 (110) Pulse Ox 98 O2 Delivery Room Air Capillary Refill : Less Than 3 Seconds Height, Weight, BMI Height: 5'0" Weight: 180lbs. 0.0oz. 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 Skin: Normal Color, Warm/Dry Progress/Results/Core Measures Suspected Sepsis Recent Fever Within 48 Hours: No Infection Criteria Present: None New/Unexplained Altered Menta: No Sepsis Screen: No Definite Risk SIRS Temperature: Pulse: 72 Respiratory Rate: 18 Laboratory Tests 11/11/19 18:45: White Blood Count 3.7L Blood Pressure 120 /61 Mean: 80 Laboratory Tests 11/11/19 18:45: Creatinine 0.81, INR Comment 1.1, Platelet Count 94L, Total Bilirubin 0.5 Results/Orders Lab Results Laboratory Tests Test 11/11/19 18:45 Range/Units White Blood Count 3.7 L 4.3-11.0 10^3/uL Red Blood Count 2.33 L 4.35-5.85 10^6/uL Hemoglobin 6.5 *L 11.5-16.0 G/DL Hematocrit 23 L 35-52 % Mean Corpuscular Volume 99 80-99 FL Mean Corpuscular Hemoglobin 28 25-34 PG Mean Corpuscular Hemoglobin Concent 28 L 32-36 G/DL Red Cell Distribution Width 18.3 H 10.0-14.5 % Platelet Count 94 L 130-400 10^3/uL Mean Platelet Volume 11.6 H 7.4-10.4 FL Neutrophils (%) (Auto) 69 42-75 % Lymphocytes (%) (Auto) 14 12-44 % Monocytes (%) (Auto) 16 H 0-12 % Eosinophils (%) (Auto) 1 0-10 % Basophils (%) (Auto) 0 0-10 % Neutrophils # (Auto) 2.5 1.8-7.8 X 10^3 Lymphocytes # (Auto) 0.5 L 1.0-4.0 X 10^3 Monocytes # (Auto) 0.6 0.0-1.0 X 10^3 Eosinophils # (Auto) 0.0 0.0-0.3 10^3/uL Basophils # (Auto) 0.0 0.0-0.1 10^3/uL Prothrombin Time 14.3 12.2-14.7 SEC INR Comment 1.1 0.8-1.4 Activated Partial Thromboplast Time 36 H 24-35 SEC Sodium Level 136 135-145 MMOL/L Potassium Level 4.5 3.6-5.0 MMOL/L Chloride Level 101 98-107 MMOL/L Carbon Dioxide Level 26 21-32 MMOL/L Anion Gap 9 5-14 MMOL/L Blood Urea Nitrogen 14 7-18 MG/DL Creatinine 0.81 0.60-1.30 MG/DL Estimat Glomerular Filtration Rate > 60 BUN/Creatinine Ratio 17 Glucose Level 116 H 70-105 MG/DL Calcium Level 9.1 8.5-10.1 MG/DL Corrected Calcium 9.4 8.5-10.1 MG/DL Total Bilirubin 0.5 0.1-1.0 MG/DL Aspartate Amino Transf (AST/SGOT) 11 5-34 U/L Alanine Aminotransferase (ALT/SGPT) 17 0-55 U/L Alkaline Phosphatase 81 40-136 U/L Total Protein 6.4 6.4-8.2 GM/DL Albumin 3.6 3.2-4.5 GM/DL My Orders Orders - ALLEY MALCOLM MD Cbc With Automated Diff (11/11/19 18:24) Ed Iv/Invasive Line Start (11/11/19 18:24) Comprehensive Metabolic Panel (11/11/19 18:51) Protime With Inr (11/11/19 18:51) Partial Thromboplastin Time (11/11/19 18:51) Red Cells Leukocytes Reduced (11/11/19 18:51) Type And Screen (11/11/19 18:51) Iron Tibc %Sat & Ferritin (11/11/19 18:55) Fecal Occult Bedside (11/11/19 18:55) Ns Iv 500 Ml (Sodium Chloride 0.9%) (11/11/19 19:39) Medications Given in ED Current Medications Medications Dose Ordered Sig/Arabella Route Start Time Stop Time Status Last Admin Dose Admin Sodium Chloride 500 ml @ STK-MED ONCE .ROUTE 11/11/19 19:39 11/11/19 19:44 DC 11/11/19 20:18 500 MLS/HR Vital Signs/I&O 11/11/19 11/11/19 11/11/19 11/11/19 18:31 19:47 20:12 20:27 Temp 36.9 36.9 36.9 36.9 Pulse 76 77 77 72 Resp 18 20 20 18 B/P (MAP) 125/102 (110) 141/59 (86) 121/73 120/61 Pulse Ox 98 96 98 99 O2 Delivery Room Air 11/11/19 20:57 Temp 36.9 Pulse 75 Resp 20 B/P (MAP) 133/71 Pulse Ox 98 Capillary Refill : Less Than 3 Seconds Blood Pressure Mean: 80 Progress Note : Progress Note Severe anemia was confirmed. A unit of PRBC was transfused. Patient was offered digital rectal Hemoccult testing but declined. She will address this with her doctors at [facility]. She was discharged in stable condition. Departure Impression Primary Impression: Pancytopenia Additional Impression: Severe anemia Disposition: HOME, SELF-CARE Condition: Improved Departure-Patient Inst. Decision time for Depature: 20:50 Referrals: MIKE MEDINA MD (PCP/Family) Primary Care Physician Patient Instructions: Blood Transfusion Add. Discharge Instructions: Follow-up with your specialists at , especially hematology, as soon as possible. Return to care or contact your doctors if you have further questions or concer ns. Continue all of your current medications until directed otherwise. All discharge instructions reviewed with patient and/or family. Voiced understanding. Copy Copies To 1: MIKE MEDINA MD, JOSHUA T MD Nov 11, 2019 20:51
--- NOTE | 2019-11-11 20:57 | NUR ---
DR SAUCEDA OKAYED TO TURN RATE TO INFUSE OVER 1 HR
== END 2019-11-11 21:48 | disposition home or self-care (01) ==
LOC: EDUNIT# 17:54 → ER 17:55
DX: D61.818 Other pancytopenia (principal); D64.9 Anemia, unspecified; D64.81 Anemia due to antineoplastic chemotherapy; J45.909 Unspecified asthma, uncomplicated; Z85.41 Personal history of malignant neoplasm of cervix uteri; Z87.891 Personal history of nicotine dependence; Z88.0 Allergy status to penicillin; Z88.2 Allergy status to sulfonamides
CPT/HCPCS: 80053; 82728; 83540; 85025; 85610; 85730; 86850; 86900; 86901; 86920; 99284; P9016; 36415

== ENCOUNTER → 2019-12-12 | Outpatient (CLI) | payer BC, MEDICARE ==
--- NOTE | 2019-12-12 14:58 | Diagnostic Imaging Report ---
INDICATION: Pain in the right breast. Correlation is made with prior mammogram from 04/15/2018 and 12/10/2017. 2-D and 3-D bilateral diagnostic mammography was performed CAD. Both breasts are heterogeneous dense, limiting sensitivity of mammography. Extensive vascular and benign parenchymal calcifications are noted throughout both breasts. No mass or malignant appearing microcalcifications are seen. A biopsy marker clip left breast is noted. Axillae are unremarkable. IMPRESSION: BI-RADS Category 0 No mammographic features suspicious for malignancy are identified. Even so, directed sonographic interrogation of the area of pain in the right breast is recommended and will be performed today. ACR BI-RADS Category 0: Incomplete. (Needs additional imaging evaluation). Result letter will be mailed to the patient. Note: At least 10% of breast cancer is not imaged by mammography. Dictated by: Dictated on workstation # [id number]
--- NOTE | 2019-12-12 15:40 | Diagnostic Imaging Report ---
INDICATION: Right breast pain. Patient also complains of a lump in midline chest inferiorly and near the inferior aspect of the sternum. EXAMINATION: Sonographic interrogation of the right breast at areas of pain was performed. This corresponds to all four quadrants. No sonographic abnormality is seen within the breast. No solid or cystic mass is identified. The area of pain and questionable lump in the midline lower sternum region does show an ill-defined area of hypoechogenicity. No internal vascularity is seen. No discrete fluid collection is identified. IMPRESSION: 1. No sonographic abnormality in the right breast is identified. 2. Ill-defined region of hypoechogenicity in lower sternum at the area of patient's pain and questionable lump. This may represent inflammatory tissue. No discrete fluid collection is identified. ACR BI-RADS Category 2: Benign findings. Result letter will be mailed to the patient. Note: At least 10% of breast cancer is not imaged by mammography. Dictated by: Dictated on workstation # [id number]
== END ==
LOC: RAD 14:15
PROVIDERS: ATTEND Family Medicine
DX: N63.10 Unspecified lump in the right breast, unspecified quadrant (principal)
CPT/HCPCS: 76642; 77066; G0279; 77062

== ENCOUNTER → 2020-01-02 | Outpatient (CLI) | payer BC, MEDICARE ==
[~2020-01-02] MED LIST changes: +AMLO-251 PO; -AMLO10TA7 PO
--- NOTE | 2020-01-02 09:45 | Diagnostic Imaging Report ---
INDICATION: PROCEDURE: Ultrasound abdomen complete. TECHNIQUE: Multiple real-time grayscale images were obtained of the abdomen in various projections. HISTORY: Post liver and kidney transplant COMPARISON: CT of the abdomen and pelvis from 10/26/2018 FINDINGS: The liver is mildly prominent in size measuring 18 cm. Echogenicity appears normal. The gallbladder has been removed. The common bile duct is not seen and may be obscured by overlapping structures. The main portal vein is hepatopetal with no thrombus seen. No intrahepatic biliary dilatation is seen. No focal hepatic lesions are identified. The pancreas is not seen due to bowel gas. The aorta and IVC appear normal in caliber. The right transplant kidney is normal in size measuring 12.2 cm. There is normal vascularity and no significant hydronephrosis. Echogenicity is unremarkable. No masses are seen. The spleen is mildly large measuring 14.1 cm. There are small hyperechoic foci in the spleen, which are not well characterized. The left kidney is absent. The bilateral kidney beds are unremarkable. At the area of the incision just inferior to the sternum there is a mildly heterogeneous hypoechoic region measuring 2.1 x 1.8 x 1.4 cm in size. Small hyperechoic foci may represent sutures. No bowel is identified in this region. There are internal echogenicities. IMPRESSION: 1. The liver and right transplant kidney demonstrate no acute abnormality. 2. Mild splenomegaly. Small hyperechoic foci in the spleen are not well characterized, could represent hemangiomas. 3. At the area of concern at the anterior abdomen there is a superficial heterogeneous hypoechoic region, which appears to be between musculature. This is nonspecific and could represent herniation, abscess, hematoma, postoperative seroma. There is no bowel involvement seen. Dictated by: Dictated on workstation # [id number]
== END ==
LOC: RAD 07:10
PROVIDERS: ATTEND Nurse Practitioner Family
DX: T81.49XA Infection following a procedure, other surgical site, initial encounter (principal); R16.1 Splenomegaly, not elsewhere classified; Z94.4 Liver transplant status; Z94.0 Kidney transplant status
CPT/HCPCS: 76700

== ENCOUNTER → 2020-07-16 | Outpatient (CLI) | payer BC, MEDICARE ==
[~2020-07-16] MED LIST changes: -CLIN300C11 PO; +CLIN300C12 PO
--- NOTE | 2020-07-16 10:12 | Diagnostic Imaging Report ---
INDICATION: New right breast lump. Sonographic interrogation of the area of lump in the right breast was performed. This corresponds to the 9 o'clock location, 10 cm from the nipple. No sonographic abnormality is identified. No solid or cystic mass is detected. IMPRESSION: BI-RADS Category 1 No sonographic abnormality is identified. Close clinical and self breast exam is recommended to confirm stability. Diagnostic mammogram could be performed for further evaluation if this persists. ACR BI-RADS Category 1: Negative. Result letter will be mailed to the patient. Note: At least 10% of breast cancer is not imaged by mammography. Dictated by: Dictated on workstation # [id number]
== END ==
LOC: RAD 09:04
PROVIDERS: ATTEND Family Medicine
DX: N63.15 Unspecified lump in the right breast, overlapping quadrants (principal)

== ENCOUNTER 2021-06-27 17:31 | Emergency (ER) | payer BC, MEDICARE ==
[~2021-06-27] VITALS: Ht 152 cm; Wt 97.5 kg
[~2021-06-27 17:31] MED LIST changes: +CLIN-144 PO; -CLIN300C12 PO; -METH5TAB2 PO; +[UNRECOGNIZED DRUG - CODE] PO
[2021-06-27] MEDS ORDERED: NS IV 1000 ML 1,000 ML IV STA (17:55)
[2021-06-27] MEDS ORDERED: KETOROLAC 30 MG/ML VIAL IVP ONE (18:00)
[2021-06-27] MEDS ORDERED: PROCHLORPERAZINE 10 MG/2ML INJ (COMPAZINE) IV ONE (18:00)
[2021-06-27] MEDS ORDERED: diphenhydrAMINE 50 MG/ML INJ (BENADRYL) IVP ONE (18:00)
--- NOTE | 2021-06-27 18:04 | ED Fever ---
History of Present Illness General Chief Complaint: Fever-Adult/Adol Stated Complaint: FEVER, VIERA Source: patient Exam Limitations: no limitations History of Present Illness Date Seen by Provider: June 27, 2021 Time Seen by Provider: 18:01 Initial Comments Patient is a 60-year-old female who presents to the ED with headache and fever. Fever started 3 days ago with a headache. Head pain described as throbbing is located to the front part of her head with radiation to the back. Fever as high as 102 at home pain is rated 10 out of 10. It has stayed the same over the past 3 days without increased intensity.. Denies nausea, vomiting, diarrhea, cough, runny nose sore throat ear pain. She states she had a negative COVID test at home. Talk to her primary care physician concerning for the flu. Denies of any neck tightness or pain. No visual changes, dizziness, chest pain. No one else at home with similar symptoms. History of migraines and states today's head pain feels somewhat similar however no fever. History of kidney transplant and liver transplant. She denies of abdominal pain. She also reports frequent urination over the past few days without pain. History of similar fever with UTI. Allergies and Home Medications Allergies Coded Allergies: Penicillins (Verified Allergy, Unknown, 08/27/08) Sulfa (Sulfonamide Antibiotics) (Verified Allergy, Unknown, 08/27/08) Patient Home Medication List Home Medication List Reviewed: Yes Albuterol Sulfate (Ventolin Hfa) 18 Gm Hfa.aer.ad, 2 PUFF INH Q4H PRN for SHORTNESS OF BREATH, (Reported) Entered as Reported by: MAGGIE GIRON on 05/10/15843 Cephalexin (Keflex) 500 Mg Capsule, 500 MG PO TID Prescribed by: ALLISON MANZANO on 10/21/192026 Cholecalciferol (Vitamin D3) (Vitamin D-3) 2,000 Unit Capsule, 2,000 UNIT PO DAILY, (Reported) Entered as Reported by: MAGGIE GIRON on 05/10/15843 Diphenhydramine HCl (Benadryl) 25 Mg Capsule, 50 MG PO DAILY PRN for ITCHING, (Reported) Entered as Reported by: MAGGIE GIRON on 05/10/15843 Methadone HCl (Methadone HCl) 5 Mg Tablet, 5 MG PO DAILY, (Reported) Entered as Reported by: JIM BRAVO on 12/13/18 1259 Methadone HCl (Methadone HCl) 5 Mg Tablet, 2.5 MG PO HS, (Reported) Entered as Reported by: JIM BRAVO on 12/13/18 1259 Nitrofurantoin Monohyd/M-Cryst (Macrobid 100 mg Capsule) 100 Mg Capsule, 1 TAB PO BID Prescribed by: LUÍS SANDERS on 06/27/21 192 Polyethylene Glycol 3350 (Miralax) 17 Gm Powd.pack, 17 GM PO DAILY PRN for CONSTIPATION, (Reported) Entered as Reported by: MAGGIE GIRON on 05/10/15 0844 Zolpidem Tartrate (Zolpidem Tartrate) 5 Mg Tablet, 5 MG PO HS PRN for SLEEP, (Reported) Entered as Reported by: GENESIS CHILDRESS on 12/19/17 1543 Review of Systems Review of Systems Constitutional: No chills, No diaphoresis; fever; No malaise, No weakness EENTM: No blurred vision, No double vision, No dental problems, No mouth pain, No mouth swelling, No nose pain, No throat pain Respiratory: No cough, No dyspnea on exertion, No phlegm, No short of breath Cardiovascular: No chest pain, No edema Gastrointestinal: No abdominal pain, No diarrhea, No nausea, No vomiting Genitourinary: No decreased output, No discharge Musculoskeletal: No back pain, No joint pain, No muscle pain Skin: No change in color, No change in hair/nails All Other Systems Reviewed Negative Unless Noted: Yes Past Ydihmwj-Cwlgjp-Nehqof Hx Immunizations Up To Date Tetanus Booster (TDap): Less than 5yrs Seasonal Allergies Seasonal Allergies: Yes Past Medical History Surgeries: Yes Hysterectomy, Kidney Transplant, Liver Transplant, Tubal Ligation Respiratory: Yes Asthma Cardiac: Yes Heart Murmur, Hypertension Neurological: No Reproductive Disorders: No [employer] History: Hysterectomy Genitourinary: Yes Kidney Stones, Renal Failure Gastrointestinal: Yes Gastroesophageal Reflux, Ulcer Musculoskeletal: No Endocrine: No Cancer: Yes Cervical Did You Recieve Any Treatments: Yes What Type of Treatment Did You: Surgical Intervention Psychosocial: No Integumentary: No Blood Disorders: No Adverse Reaction/Blood Tranf: No Family Medical History Patient reports no known family medical history. Physical Exam Vital Signs - First Documented 06/27/21 17:58 Temp 37.6 Pulse 85 Resp 18 B/P (MAP) 170/116 (134) Pulse Ox 96 Capillary Refill : Height: 5'0" Weight: 180lbs. 0.0oz. 81.596937po; 32.00 BMI Method:Stated General Appearance: WD/WN, no apparent distress Eyes: Bilateral Eye Normal Inspection, Bilateral Eye PERRL, Bilateral Eye Abnor mal EOM HEENT: PERRL/EOMI, normal ENT inspection, TMs normal, pharynx normal Neck: non-tender, full range of motion, supple, normal inspection Respiratory: chest non-tender, lungs clear, normal breath sounds, no respiratory distress, no accessory muscle use Cardiovascular: regular rate, rhythm, no edema, no gallop, no JVD Gastrointestinal: normal bowel sounds, non tender, soft, no organomegaly Extremities: normal range of motion, non-tender, normal inspection, no pedal edema, no calf tenderness 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, no motor/sensory deficits, alert, normal mood/affect, oriented x 3 Skin: normal color, warm/dry Progress/Results/Core Measures Suspected Sepsis SIRS Temperature: Pulse: Respiratory Rate: Laboratory Tests 06/27/21 18:03: White Blood Count 6.7 Blood Pressure / Mean: Laboratory Tests 06/27/21 18:03: Creatinine 1.01, Platelet Count 94L, Total Bilirubin 1.0 Results/Orders Lab Results Laboratory Tests Test 06/27/21 17:50 06/27/21 18:03 06/27/21 18:20 Range/Units Urine Color YELLOW Urine Clarity CLEAR Urine pH 6.0 5-9 Urine Specific [place] <=1.005 1.016-1.022 Urine Protein NEGATIVE NEGATIVE Urine Glucose (UA) NEGATIVE NEGATIVE Urine Ketones NEGATIVE NEGATIVE Urine Nitrite NEGATIVE NEGATIVE Urine Bilirubin NEGATIVE NEGATIVE Urine Urobilinogen 0.2 < = 1.0 MG/DL Urine Leukocyte Esterase NEGATIVE NEGATIVE Urine RBC (Auto) TRACE-I H NEGATIVE Urine RBC 0-2 /HPF Urine WBC 5-10 H /HPF Urine Squamous Epithelial Cells 2-5 /HPF Urine Renal Epithelial Cells NONE /HPF Urine Crystals NONE /LPF Urine Bacteria TRACE /HPF Urine Casts NONE /LPF Urine Mucus NEGATIVE /LPF Urine Culture Indicated NO White Blood Count 6.7 4.3-11.0 10^3/uL Red Blood Count 5.06 3.80-5.11 10^6/uL Hemoglobin 14.8 11.5-16.0 g/dL Hematocrit 45 35-52 % Mean Corpuscular Volume 90 80-99 fL Mean Corpuscular Hemoglobin 29 25-34 pg Mean Corpuscular Hemoglobin Concent 33 32-36 g/dL Red Cell Distribution Width 13.2 10.0-14.5 % Platelet Count 94 L 130-400 10^3/uL Mean Platelet Volume 11.9 9.0-12.2 fL Immature Granulocyte % (Auto) 0 % Neutrophils (%) (Auto) 78 H 42-75 % Lymphocytes (%) (Auto) 11 L 12-44 % Monocytes (%) (Auto) 11 0-12 % Eosinophils (%) (Auto) 0 0-10 % Basophils (%) (Auto) 0 0-10 % Neutrophils # (Auto) 5.2 1.8-7.8 10^3/uL Lymphocytes # (Auto) 0.7 L 1.0-4.0 10^3/uL Monocytes # (Auto) 0.7 0.0-1.0 10^3/uL Eosinophils # (Auto) 0.0 0.0-0.3 10^3/uL Basophils # (Auto) 0.0 0.0-0.1 10^3/uL Immature Granulocyte # (Auto) 0.0 0.0-0.1 10^3/uL Percent Immature Platelet Fraction 7.7 H 0.0-7.6 % Sodium Level 139 135-145 MMOL/L Potassium Level 3.8 3.6-5.0 MMOL/L Chloride Level 102 98-107 MMOL/L Carbon Dioxide Level 23 21-32 MMOL/L Anion Gap 14 5-14 MMOL/L Blood Urea Nitrogen 8 7-18 MG/DL Creatinine 1.01 0.60-1.30 MG/DL Estimat Glomerular Filtration Rate 64 BUN/Creatinine Ratio 8 Glucose Level 200 H 70-105 MG/DL Calcium Level 9.8 8.5-10.1 MG/DL Corrected Calcium 9.7 8.5-10.1 MG/DL Total Bilirubin 1.0 0.1-1.0 MG/DL Aspartate Amino Transf (AST/SGOT) 10 5-34 U/L Alanine Aminotransferase (ALT/SGPT) 18 0-55 U/L Alkaline Phosphatase 90 40-136 U/L Total Protein 7.1 6.4-8.2 GM/DL Albumin 4.1 3.2-4.5 GM/DL Influenza Type A (RT-PCR) Not Detected Not Detecte Influenza Type B (RT-PCR) Not Detected Not Detecte SARS-CoV-2 RNA (RT-PCR) Not Detected Not Detecte My Orders Orders - SARAH MELÉNDEZ Cbc With Automated Diff (06/27/21 17:55) Comprehensive Metabolic Panel (06/27/21 17:55) Influenza A And B By Pcr (06/27/21 17:55) Covid 19 Inhouse Test (06/27/21 17:55) Ns Iv 1000 Ml (Sodium Chloride 0.9%) (06/27/21 17:55) Diphenhydramine Injection (Benadryl Inje (06/27/21 18:00) Prochlorperazine Injection (Compazine In (06/27/21 18:00) Ketorolac Injection (Toradol Injection) (06/27/21 18:00) Ua Culture If Indicated (06/27/21 17:58) Nitrofurantoin Capsule (Macrodantin Caps (06/27/21 19:30) Nitrofurantoin Capsule,Macro (Macrobid C (06/27/21 19:27) Medications Given in ED Current Medications Medications Dose Ordered Sig/Arabella Route Start Time Stop Time Status Last Admin Dose Admin Diphenhydramine HCl 25 mg ONCE ONCE IVP 06/27/21 18:00 06/27/21 18:01 DC 06/27/21 19:07 25 MG Ketorolac Tromethamine 30 mg ONCE ONCE IVP 06/27/21 18:00 06/27/21 18:01 DC 06/27/21 18:36 30 MG Nitrofurantoin Macrocrystals 100 mg STK-MED ONCE PO 06/27/21 19:27 06/27/21 19:31 DC 06/27/21 19:20 100 MG Prochlorperazine Edisylate 10 mg ONCE ONCE IV 06/27/21 18:00 06/27/21 18:01 DC 06/27/21 19:07 10 MG Vital Signs/I&O 06/27/21 06/27/21 17:58 19:34 Temp 37.6 37.6 Pulse 85 80 Resp 18 18 B/P (MAP) 170/116 (134) 160/100 Pulse Ox 96 97 Capillary Refill : Departure Communication (PCP) Patient is a 60-year-old female who presents ED with headache fever. Patient neuro exam unremarkable. She had temperature 99.7. She did take Tylenol. History of liver and kidney transplant. Patient only complaint is throbbing head pain and fever. She did have some photophobia today. Similar type head pain with her migraines however she denies fever. She does have some urinary symptoms with increased urine without pain. Urinalysis does note UTI. She was given Macrobid. She is allergic to penicillins with severe rash. She has no flank pain, chest pain, abdominal pain short of breath or cough. Exam otherwise benign. Normal white blood count. She was given migraine cocktail with some improvement of her headache. Discussed concerns for meningitis with her current symptoms of headache and fever. She did not have any meningeal signs, neck tightness or vomiting. Discussed CT scan of the head with lumbar puncture. Discussed with patient typical migraines do not have fever however this could be a result of her UTI. She has no recent URI symptoms. However due to the headache and fever would consider ruling out meningitis without any strong obvious source of fever. Patient refused procedure at this time. She states this feels like her migraine and is concerned for possible UTI. Negative COVID and influenza. Reassuring lab work besides elevated blood sugar 200. If these symptoms worsen she will return back to ED. She had no meningeal signs. She remained afebrile. She was given migraine cocktail with some improvement. Impression Primary Impression: Headache Disposition: 01 HOME, SELF-CARE Condition: Stable Departure-Patient Inst. Decision time for Depature: 19:23 Referrals: MIKE MEDINA MD (PCP/Family) Primary Care Physician Patient Instructions: HEADACHE Scripts Nitrofurantoin Monohyd/M-Cryst (Macrobid 100 mg Capsule) 100 Mg Capsule 1 TAB PO BID for 5 Days, #10 CAP Prov: SARAH MELÉNDEZ 06/27/21 SARAH MELÉNDEZ June 27, 2021 18:04
[2021-06-27 18:16] LABS: EOSINOPHILS % (AUTO) 0 % (0-10); HEMOGLOBIN 14.8 g/dL (11.5-16.0); NEUTROPHILS % (AUTO) 78 % (42-75)
[2021-06-27 18:18] LABS: BASOPHILS % (AUTO) 0 % (0-10); HEMATOCRIT 45 % (35-52); LYMPHOCYTES # (AUTO) 0.7 10^3/uL (1.0-4.0); LYMPHOCYTES % (AUTO) 11 % (12-44); MEAN CORPUSCULAR HEMOGLOBIN 29 pg (25-34); MEAN CORPUSCULAR HGB CONC 33 g/dL (32-36); MEAN CORPUSCULAR VOLUME 90 fL (80-99); MEAN PLATELET VOLUME 11.9 fL (9.0-12.2); MONOCYTES # (AUTO) 0.7 10^3/uL (0.0-1.0); MONOCYTES % (AUTO) 11 % (0-12); NEUTROPHILS # (AUTO) 5.2 10^3/uL (1.8-7.8); PLATELET COUNT 94 10^3/uL (130-400); WHITE BLOOD COUNT 6.7 10^3/uL (4.3-11.0)
[2021-06-27 18:18] LABS: BILIRUBIN,URINE NEGATIVE (NEGATIVE); CLARITY,URINE CLEAR; COLOR,URINE YELLOW; GLUCOSE, URINE (UA) NEGATIVE (NEGATIVE); KETONES,URINE NEGATIVE (NEGATIVE); LEUKOCYTE ESTERASE ,URINE NEGATIVE (NEGATIVE); NITRITE,URINE NEGATIVE (NEGATIVE); PROTEIN,URINE NEGATIVE (NEGATIVE)
[2021-06-27 18:27] LABS: BACTERIA,URINE TRACE /HPF; RBC,URINE 0-2 /HPF
[2021-06-27 18:27] LABS: ALBUMIN 4.1 GM/DL (3.2-4.5); POTASSIUM 3.8 MMOL/L (3.6-5.0)
[2021-06-27 18:28] LABS: CALCIUM 9.8 MG/DL (8.5-10.1)
[2021-06-27 18:30] LABS: TOTAL PROTEIN 7.1 GM/DL (6.4-8.2)
[2021-06-27 18:33] LABS: CREATININE SERUM 1.01 MG/DL (0.60-1.30)
[2021-06-27] MEDS ORDERED: NITR-65 PO (19:22)
[2021-06-27] MEDS ORDERED: NITROFURANTOIN 100 MG (MACROBID) CAPSULE PO ONE (19:27)
[2021-06-27] MEDS ORDERED: NITROFURANTOIN 50 MG (MACRODANTIN) CAP PO ONE (19:30)
[2021-06-27 19:34] VITALS: BP 160/100
== END 2021-06-27 19:34 | disposition home or self-care (01) ==
LOC: EDUNIT# 17:31 → ER 17:34
DX: G43.109 Migraine with aura, not intractable, without status migrainosus (principal); N39.0 Urinary tract infection, site not specified; Z94.0 Kidney transplant status; Z94.4 Liver transplant status; Z88.0 Allergy status to penicillin; Z90.710 Acquired absence of both cervix and uterus; Z20.822 Contact with and (suspected) exposure to COVID-19
CPT/HCPCS: 36415; 80053; 81000; 85025; 87636

== ENCOUNTER 2022-04-24 10:56 | Emergency (ER) | payer MEDICARE, BC ==
[~2022-04-24 10:56] MED LIST changes: +NITR-65 PO
[2022-04-24] MEDS ORDERED: ACETAMINOPHEN 325 MG TABLET PO ONE (11:30)
--- NOTE | 2022-04-24 11:36 | ED Headache ---
General Chief Complaint: Cardiac/General Problems Stated Complaint: HIGH BLOOD PRESSURE | HEADACHE | BLURRY VISION Nursing Triage Note: PT AMB TO [facility] 5 WITH CC OF HTN, BLURRY VISION AND VIERA THAT BEGAN AROUND 1030. PT STATES SHE DOES NOT KNOW IF SHE TOOK HER MEDS THIS AM. PT REPORTS BLURRY VISION HAS SUBSIDED AT TIME OF TRIAGE. Source: patient Exam Limitations: no limitations History of Present Illness Date Seen by Provider: Apr 24, 2022 Time Seen by Provider: 11:31 Initial Comments Patient is a 61-year-old female with a history of hypertension, kidney and liver transplant 2020, migraines, stroke who presents the ED with blurry vision out of her left eye and head pain. This started around 1030 this morning. 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 Developed a headache this morning and then had vision changes vision changes described as narrowing of her vision to a 'pinpoint'. That vision has completely resolved. She does report head pressure 6 out of 10. She states she has a history of migraines and states this feels very similar with the visual changes of the left eye. 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 She is not currently on a blood thinner. She denies of any unilateral muscle weakness or sensory changes, chest pain, cough, shortness of breath, slurred speech, complete visual loss, facial droop. She did not take her blood pressure medication this morning. She is currently on tacrolimus for immunosuppressive for her liver and kidney transplant. Patient is refusing imaging at this time. She is requesting Tylenol. Blood pressure was 180/105. She does take losartan for her blood pressure. Patient states she started panicking with the visual changes. Allergies and Home Medications Allergies Coded Allergies: Penicillins (Verified Allergy, Unknown, 08/27/08) Sulfa (Sulfonamide Antibiotics) (Verified Allergy, Unknown, 08/27/08) Patient Home Medication List Home Medication List Reviewed: Yes Albuterol Sulfate (Ventolin Hfa) 18 Gm Hfa.aer.ad, 2 PUFF INH Q4H PRN for SHORTNESS OF BREATH, (Reported) Entered as Reported by: MAGGIE GIRON on 05/10/15 0844 Cephalexin (Keflex) 500 Mg Capsule, 500 MG PO TID Prescribed by: ALLISON MANZANO on 10/21/192026 Cholecalciferol (Vitamin D3) (Vitamin D-3) 2,000 Unit Capsule, 2,000 UNIT PO DAILY, (Reported) Entered as Reported by: MAGGIE GIRON on 05/10/15 0844 Diphenhydramine HCl (Benadryl) 25 Mg Capsule, 50 MG PO DAILY PRN for ITCHING, (Reported) Entered as Reported by: MAGGIE GIRON on 05/10/15 0844 Methadone HCl (Methadone HCl) 5 Mg Tablet, 5 MG PO DAILY, (Reported) Entered as Reported by: JIM BRAVO on 12/13/18 1259 Methadone HCl (Methadone HCl) 5 Mg Tablet, 2.5 MG PO HS, (Reported) Entered as Reported by: JIM BRAVO on 12/13/18 1259 Nitrofurantoin Monohyd/M-Cryst (Macrobid 100 mg Capsule) 100 Mg Capsule, 1 TAB PO BID Prescribed by: LUÍS SANDERS on 06/27/211921 Polyethylene Glycol 3350 (Miralax) 17 Gm Powd.pack, 17 GM PO DAILY PRN for CONSTIPATION, (Reported) Entered as Reported by: MAGGIE GIRON on 05/10/15 0844 Zolpidem Tartrate (Zolpidem Tartrate) 5 Mg Tablet, 5 MG PO HS PRN for SLEEP, (Reported) Entered as Reported by: GENESIS CHILDRESS on 12/19/17 1543 Review of Systems Review of Systems Constitutional: No chills, No diaphoresis, No malaise, No weakness Eyes: Denies Blindness; Blurred Vision; Denies Pain, Denies Photophobia, Denies Previous Injury, Denies Glasses Ears, Nose, Mouth, Throat: denies ear pain, denies ear discharge Respiratory: No cough, No orthopnea, No short of breath, No stridor, No wheezing Cardiovascular: No chest pain Gastrointestinal: No abdominal pain, No diarrhea, No nausea, No vomiting Musculoskeletal: No back pain, No joint pain Skin: No change in color, No change in hair/nails Psychiatric/Neurological: Headache; Denies Numbness, Denies Paresthesia, Denies Seizure, Denies Tingling, Denies Tremors, Denies Weakness All Other Systems Reviewed Negative Unless Noted: Yes Past Qwrzltq-Vbqvqx-Nqthsi Hx Patient Social History Tobacco Use?: No Tobacco type used: Cigarettes Smoking Status: Former Smoker Substance use?: No Alcohol Use?: No Pt feels they are or have been: No Immunizations Up To Date Tetanus Booster (TDap): Less than 5yrs Seasonal Allergies Seasonal Allergies: Yes Past Medical History Surgery/Hospitalization HX: sx: liver transplant 2019, kidney transplant 2019, gallbladder, TIA, HTN Surgeries: Yes Hysterectomy, Kidney Transplant, Liver Transplant, Tubal Ligation Respiratory: Yes Asthma Cardiac: Yes Heart Murmur, Hypertension Neurological: No Reproductive Disorders: No [employer] History: Hysterectomy Genitourinary: Yes Kidney Stones, Renal Failure Gastrointestinal: Yes Gastroesophageal Reflux, Ulcer Musculoskeletal: No Endocrine: No Cancer: Yes Cervical Did You Recieve Any Treatments: Yes What Type of Treatment Did You: Surgical Intervention Psychosocial: No Integumentary: No Blood Disorders: No Adverse Reaction/Blood Tranf: No Family Medical History Patient reports no known family medical history. Physical Exam Vital Signs Vital Signs - First Documented 04/24/22 11:03 Temp 36.9 Pulse 74 Resp 45 B/P (MAP) 198/97 (130) Pulse Ox 96 O2 Delivery Room Air Capillary Refill : Less Than 3 Seconds Height, Weight, BMI Height: 5'0" Weight: 180lbs. 0.0oz. 81.694257qs; 42.00 BMI Method:Stated General Appearance: WD/WN, no apparent distress HEENT: PERRL/EOMI, normal ENT inspection, TMs normal, pharynx normal Neck: non-tender, full range of motion, supple, normal inspection Cardiovascular: regular rate, rhythm, no edema, no gallop, no JVD Respiratory: chest non-tender, lungs clear, normal breath sounds, no respiratory distress, no accessory muscle use Gastrointestinal: normal bowel sounds, non tender, soft, no organomegaly Back: normal inspection, no CVA tenderness Extremities: normal range of motion, non-tender, normal inspection, no pedal edema Psychiatric: alert Crainal Nerves: normal hearing, normal speech, PERRL, abnormal eye position; No abnormal speech, No facial asymmetry, No facial droop, No facial paresthesias Coordination/Gait: normal finger to nose, normal gait Motor/Sensory: no motor deficit, no sensory deficit, no pronator drift Skin: normal color, warm/dry Lymphatic: no adenopathy Progress/Results/Core Measures Results/Orders Lab Results Laboratory Tests Test 04/24/22 11:10 Range/Units White Blood Count 5.4 4.3-11.0 10^3/uL Red Blood Count 4.43 3.80-5.11 10^6/uL Hemoglobin 13.1 11.5-16.0 g/dL Hematocrit 41 35-52 % Mean Corpuscular Volume 92 80-99 fL Mean Corpuscular Hemoglobin 30 25-34 pg Mean Corpuscular Hemoglobin Concent 32 32-36 g/dL Red Cell Distribution Width 13.4 10.0-14.5 % Platelet Count 118 L 130-400 10^3/uL Mean Platelet Volume 12.0 9.0-12.2 fL Immature Granulocyte % (Auto) 1 % Neutrophils (%) (Auto) 71 42-75 % Lymphocytes (%) (Auto) 19 12-44 % Monocytes (%) (Auto) 7 0-12 % Eosinophils (%) (Auto) 2 0-10 % Basophils (%) (Auto) 0 0-10 % Neutrophils # (Auto) 3.8 1.8-7.8 10^3/uL Lymphocytes # (Auto) 1.0 1.0-4.0 10^3/uL Monocytes # (Auto) 0.4 0.0-1.0 10^3/uL Eosinophils # (Auto) 0.1 0.0-0.3 10^3/uL Basophils # (Auto) 0.0 0.0-0.1 10^3/uL Immature Granulocyte # (Auto) 0.0 0.0-0.1 10^3/uL Percent Immature Platelet Fraction 7.1 0.0-7.6 % Sodium Level 141 135-145 MMOL/L Potassium Level 4.0 3.6-5.0 MMOL/L Chloride Level 106 98-107 MMOL/L Carbon Dioxide Level 25 21-32 MMOL/L Anion Gap 10 5-14 MMOL/L Blood Urea Nitrogen 15 7-18 MG/DL Creatinine 1.01 0.60-1.30 MG/DL Estimat Glomerular Filtration Rate 64 BUN/Creatinine Ratio 15 Glucose Level 146 H 70-105 MG/DL Calcium Level 9.6 8.5-10.1 MG/DL Corrected Calcium 9.5 8.5-10.1 MG/DL Total Bilirubin 0.6 0.1-1.0 MG/DL Aspartate Amino Transf (AST/SGOT) 15 5-34 U/L Alanine Aminotransferase (ALT/SGPT) 20 0-55 U/L Alkaline Phosphatase 77 40-136 U/L Total Protein 6.9 6.4-8.2 GM/DL Albumin 4.1 3.2-4.5 GM/DL My Orders Orders - SARAH MELÉNDEZ Cbc With Automated Diff (04/24/22 11:30) Comprehensive Metabolic Panel (04/24/22 11:30) Acetaminophen Tablet/Caplet (Tylenol T (04/24/22 11:30) Hydralazine Injection (Apresoline Inject (04/24/22 11:45) Medications Given in ED Current Medications Medications Dose Ordered Sig/Arabella Route Start Time Stop Time Status Last Admin Dose Admin Acetaminophen 650 mg ONCE ONCE PO 04/24/22 11:30 04/24/22 11:32 DC 04/24/22 11:37 650 MG Hydralazine HCl 10 mg ONCE ONCE IV 04/24/22 11:45 04/24/22 11:46 DC 04/24/22 11:45 10 MG Vital Signs/I&O 04/24/22 04/24/22 11:03 12:25 Temp 36.9 Pulse 74 71 Resp 45 25 B/P (MAP) 198/97 (130) 156/94 Pulse Ox 96 100 O2 Delivery Room Air Room Air Blood Pressure Mean: 130 Departure Communication (PCP) Reviewed old records including previous ER record, H&P's, consults, test and pr ocedures and discharge summaries. Not able to locate any previous records regarding a history of migraines. She states she has a history of migraines that result in blurry vision of the left eye. Her vision completely resolved before rival. She has chronic visual changes right eye secondary to a stroke. Neuro exam unremarkable. She rates head pain 6 out of 10 described as pressure. Similar type head pain in the past typically resolves with Tylenol. She states she has been under a lot of stress at work and did get anxious during her visual changes. Recommended CT scan of the head to the head pain and visual changes. Patient refused and states she does not want the imaging at this time. She did have a CTA in December 2018 that did not show any significant stenosis of her carotid arteries with a unremarkable CT angio of the head. Discussed with patient potential changes. She acknowledges. She was requesting Tylenol. She was hypertensive. She did not take her p.o. medication of losartan for her bl ood pressure today. She was given hydralazine with improvement of her blood pressure to 156/94. Recommended migraine cocktail she refused. CBC and CMP was ordered. patient lab work was otherwise unremarkable. She is not on a blood thinner. She is requested to be discharged. She states that she still has a mild headache but was wanting to go back to work. Discussed with patient that this may continue and recommend going home to rest. She refused. She return if symptoms worsen. She is not currently on migraine prophylactic medication. No other acute complaints at this time. Discussed conservative treatment with ajjn-gnb-wzqjsum medication for headaches such as Excedrin Migraine. Follow-up your PCP in 2 to 3 days for reevaluation. Reviewed today's results, anticipated course of action, medication and symptomatic treatment and strict return precautions and when to follow-up. Impression Primary Impression: Headache Disposition: 01 HOME, SELF-CARE Condition: Stable Departure-Patient Inst. Decision time for Depature: 12:20 Referrals: MIKE MEDINA MD (PCP/Family) Primary Care Physician Patient Instructions: Headache, Adult (DC) Add. Discharge Instructions: Please return back to ED if vision changes continue or worsening head pain All discharge instructions reviewed with patient and/or family. Voiced understanding. SARAH MELÉNDEZ Apr 24, 2022 11:36
[2022-04-24 11:40] LABS: BASOPHILS % (AUTO) 0 % (0-10); EOSINOPHILS # (AUTO) 0.1 10^3/uL (0.0-0.3); EOSINOPHILS % (AUTO) 2 % (0-10); HEMATOCRIT 41 % (35-52); HEMOGLOBIN 13.1 g/dL (11.5-16.0); LYMPHOCYTES % (AUTO) 19 % (12-44); MEAN CORPUSCULAR HEMOGLOBIN 30 pg (25-34); MEAN CORPUSCULAR HGB CONC 32 g/dL (32-36); MEAN CORPUSCULAR VOLUME 92 fL (80-99); MONOCYTES # (AUTO) 0.4 10^3/uL (0.0-1.0); MONOCYTES % (AUTO) 7 % (0-12); NEUTROPHILS # (AUTO) 3.8 10^3/uL (1.8-7.8); NEUTROPHILS % (AUTO) 71 % (42-75); PLATELET COUNT 118 10^3/uL (130-400); WHITE BLOOD COUNT 5.4 10^3/uL (4.3-11.0)
[2022-04-24 11:45] LABS: ALBUMIN 4.1 GM/DL (3.2-4.5)
[2022-04-24] MEDS ORDERED: hydrALAZINE (APESOLINE) 20 MG/ML VIAL IV ONE (11:45)
[2022-04-24 11:46] LABS: CALCIUM 9.6 MG/DL (8.5-10.1)
[2022-04-24 11:47] LABS: TOTAL PROTEIN 6.9 GM/DL (6.4-8.2)
[2022-04-24 11:49] LABS: BILIRUBIN,TOTAL 0.6 MG/DL (0.1-1.0)
[2022-04-24 11:51] LABS: CREATININE SERUM 1.01 MG/DL (0.60-1.30)
[2022-04-24 12:25] VITALS: BP 156/94
== END 2022-04-24 12:26 | disposition home or self-care (01) ==
LOC: EDUNIT# 10:56 → ER 10:58
DX: R51.9 Headache, unspecified (principal); H53.8 Other visual disturbances; I12.9 Hypertensive chronic kidney disease with stage 1 through stage 4 chronic kidney disease, or unspecified chronic kidney disease; N18.9 Chronic kidney disease, unspecified; Z86.69 Personal history of other diseases of the nervous system and sense organs; Z28.310 Unvaccinated for COVID-19; Z94.0 Kidney transplant status; Z94.4 Liver transplant status; Z79.69 Long term (current) use of other immunomodulators and immunosuppressants; Z87.891 Personal history of nicotine dependence
CPT/HCPCS: 36415; 80053; 85025; 99283

== ENCOUNTER → 2022-10-04 | Outpatient (CLI) | payer MEDICARE, BC ==
[~2022-10-04] MED LIST changes: +OXYC40TA PO; -OXYC40TA57 PO
--- NOTE | 2022-10-04 13:26 | Diagnostic Imaging Report ---
INDICATION: Palpable lump in the right breast. COMPARISON: Correlation is made with the prior mammograms from 12/12/2019 and 04/15/2018. TECHNIQUE: 2D and 3D bilateral diagnostic mammography was performed with CAD. FINDINGS: A BB marker was placed at the area of palpable abnormality. There is a rounded mass in the retroareolar right breast measuring approximately 2.4 cm in size. This may account for the palpable abnormality. There are numerous benign parenchymal and vascular calcifications bilaterally. Scattered fibroglandular densities throughout both breasts are noted. No malignant-appearing microcalcifications are seen. The axillae are unremarkable. IMPRESSION: A rounded mass has developed in the retroareolar right breast, likely accounting for the palpable abnormality. Further evaluation with ultrasound is recommended and will be performed today. ACR BI-RADS Category 0: Incomplete. (Needs additional imaging evaluation). Result letter will be mailed to the patient. Note: At least 10% of breast cancer is not imaged by mammography. Dictated by: Dictated on workstation # [id number]
--- NOTE | 2022-10-04 14:00 | Diagnostic Imaging Report ---
Indication: Palpable lump right breast. Correlation is made with diagnostic mammogram earlier same day. Sonographic interrogation of the area of palpable abnormality upper right breast was performed. There is a hypoechoic somewhat lobulated mass at the 10:00 location right breast, 5-6 cm from the nipple. This does show internal vascularity measuring 2.5 x 2.1 x 2.2 cm. No significant posterior acoustic shadowing is seen. There is actually possible enhancement. The right axilla is unremarkable. IMPRESSION: BI-RADS Category 4 Solid mass 10:00 location right breast, corresponding to the palpable and mammographic abnormality. Tissue sampling would be recommended. This would be amenable to ultrasound-guided core biopsy. ACR BI-RADS Category 4: Suspicious abnormality. Dictated by: Dictated on workstation # [id number]
== END ==
LOC: RAD 12:40
PROVIDERS: ATTEND Family Medicine
DX: N63.11 Unspecified lump in the right breast, upper outer quadrant (principal)
CPT/HCPCS: 76642; 77066; G0279; 77062

== ENCOUNTER → 2022-10-09 | Day surgery (SDC) | payer MEDICARE, BC ==
[~2022-10-09] VITALS: Ht 152.4 cm; Wt 109.1 kg
[~2022-10-09] MED LIST changes: +LIDOCAINE 1% INJ 10 ML VIAL INJ ONE
--- NOTE | 2022-10-09 14:22 | Diagnostic Imaging Report ---
INDICATION: Right breast mass. Patient presents for ultrasound guided core biopsy. Patient brought to the sonographic suite placed in the bed in the supine position. Ultrasound imaging of the right breast was performed to evaluate appropriate entry site. Right breast was prepped and draped in usual sterile fashion. Small amount of 1% lidocaine was utilized for local anesthesia. 4 core biopsies were obtained of the solid mass 12 o'clock location right breast utilizing the 14-gauge Achieve needle. A marker clip was deployed. Hemostasis was obtained using manual compression. Patient tolerated the procedure well and was sent for post procedure mammogram in satisfactory condition. IMPRESSION: Successful ultrasound guided core biopsy of the solid mass 12 o'clock right breast. Pathology results are currently pending. Dictated by: Dictated on workstation # [id number]
--- NOTE | 2022-10-09 15:49 | Diagnostic Imaging Report ---
INDICATION: Right breast mass. Patient status post ultrasound-guided core biopsy. Unilateral right 2-D CC and ML mammography was performed after patient underwent ultrasound guided core biopsy of right breast mass. Images demonstrate a marker clip noted within the solid mass in the upper right breast. IMPRESSION: Marker clip placement status post ultrasound-guided core biopsy of right breast mass. Dictated by: Dictated on workstation # [id number]
== END ==
LOC: RAD 11:58
PROVIDERS: ATTEND Family Medicine
DX: C50.911 Malignant neoplasm of unspecified site of right female breast (principal)
CPT/HCPCS: 19083; 77065; A4648; G0279